=== PATIENT | female | born 1945 | race Caucasian/White ===

== ENCOUNTER → 2017-03-10 | Outpatient (CLI) | payer MEDICARE ==
--- NOTE | 2017-03-11 13:49 | MM ---
Reason for exam: screening (asymptomatic). Last mammogram was performed 1 year and 4 months ago. History: Patient is postmenopausal and history of colon cancer. Family history of breast cancer in sister at age 63 and breast cancer in aunt at age 80. Benign left mammotome panel of the left breast, April 12, 2013. Reductions of both breasts, 2007. Taking estrogen for 5 years 8 months. Taking progesterone for 5 years 8 months. Physical Findings: A clinical breast exam by your physician is recommended on an annual basis and results should be correlated with mammographic findings. MG 3D Screening Mammo W/Cad Bilateral CC and MLO view(s) were taken. Prior study comparison: November 05, 2015, bilateral MG 3d screening mammo w/cad. August 13, 2010, bilateral diagnostic digital mammog. Finding: There are typically benign calcifications in both breasts. Previous mammotome biopsy in the left breast. No significant changes in finding since November 05, 2015 and August 13, 2010. ASSESSMENT: Benign, BI-RAD 2 RECOMMENDATION: Routine screening mammogram of both breasts in 1 year.
== END | disposition home or self-care (01) ==
LOC: RADMAMWWP 14:59
PROVIDERS: ATTEND Family Medicine
DX: Z12.31 Encounter for screening mammogram for malignant neoplasm of breast (principal)
CPT/HCPCS: 77063; G0202

== ENCOUNTER → 2017-03-10 | Outpatient (CLI) | payer MEDICARE ==
--- NOTE | 2017-03-11 09:32 | XR ---
Bilateral knees HISTORY: Osteoarthritis bilateral knees M17.0, right knee pain 3 views of each knee submitted on a total of 5 images. No comparisons There is minimal marginal spurring medial compartments, slight joint space loss. Alignment and bone m ineralization are maintained. No evident joint effusion. Spurring also noted patellofemoral joints. V ascular calcifications noted incidentally. IMPRESSION: Findings compatible with osteoarthritis.
--- NOTE | 2017-03-11 09:34 | XR ---
Bilateral shoulders HISTORY: Osteoarthritis bilateral shoulders, left shoulder pain 3 views of each shoulder are submitted on a total of 6 images Hypertrophic changes present at the acromioclavicular joints. Alignment and bone mineralization are m aintained. Lung apices as visualized are normal. IMPRESSION: Acromioclavicular joint arthropathy.
== END | disposition home or self-care (01) ==
LOC: RADXRMAIN 15:27
PROVIDERS: ATTEND Family Medicine
DX: M17.0 Bilateral primary osteoarthritis of knee (principal); M19.011 Primary osteoarthritis, right shoulder; M19.012 Primary osteoarthritis, left shoulder
CPT/HCPCS: 77063

== ENCOUNTER → 2018-03-17 | Outpatient (CLI) | payer MEDICARE ==
[2018-03-17 11:43] LABS: ALT 29 U/L (9-52); AST 24 U/L (14-36); Albumin 4.3 g/dL (3.5-5.0); Alkaline Phosphatase 88 U/L (38-126); Anion Gap 10 mmol/L; Blood Urea Nitrogen 13 mg/dL (7-17); Calcium 9.8 mg/dL (8.4-10.2); Carbon Dioxide 28 mmol/L (22-30); Chloride 104 mmol/L (98-107); Cholesterol 209 mg/dL (<200); Glucose 92 mg/dL (74-99); HDL Cholesterol 102 mg/dL (40-60); LDL Cholesterol,Calculated 88 mg/dL (0-99); Potassium 4.3 mmol/L (3.5-5.1); Sodium 142 mmol/L (137-145); Total Bilirubin 0.5 mg/dL (0.2-1.3); Total Protein 7.7 g/dL (6.3-8.2); Triglycerides 93 mg/dL (<150)
== END ==
LOC: LABWHC1 10:05
PROVIDERS: ATTEND Internal Medicine Interventional Cardiology
DX: I73.9 Peripheral vascular disease, unspecified (principal)
CPT/HCPCS: 36415; 80053; 80061

== ENCOUNTER → 2018-07-26 | Outpatient (CLI) | payer MEDICARE ==
--- NOTE | 2018-07-27 11:52 | MM ---
Reason for exam: screening (asymptomatic). Last mammogram was performed 1 year and 4 months ago. History: Patient is postmenopausal and history of colon cancer. Family history of breast cancer in sister at age 63 and breast cancer in aunt at age 80. Benign left mammotome panel of the left breast, April 12, 2013. Reductions of both breasts, 2007. Took estrogen for 5 years 8 months. Took progesterone for 5 years 8 months. Physical Findings: A clinical breast exam by your physician is recommended on an annual basis and results should be correlated with mammographic findings. MG 3D Screening Mammo W/Cad Bilateral CC and MLO view(s) were taken. Prior study comparison: March 10, 2017, bilateral MG 3d screening mammo w/cad. November 05, 2015, bilateral MG 3d screening mammo w/cad. There are scattered fibroglandular densities. Finding: There are indeterminate calcifications in the 9 o'clock position of the left breast 8cm from the nipple. New finding since March 10, 2017 and November 05, 2015. ASSESSMENT: Incomplete: need additional imaging evaluation, BI-RAD 0 RECOMMENDATION: Special view mammogram of the left breast. [facility] will attempt to contact patient to return for supplemental views.
== END | disposition home or self-care (01) ==
LOC: RADMAMWWP 14:18
PROVIDERS: ATTEND Family Medicine
DX: Z12.31 Encounter for screening mammogram for malignant neoplasm of breast (principal)
CPT/HCPCS: 77063; 77067

== ENCOUNTER → 2018-07-26 | Outpatient (CLI) | payer MEDICARE ==
--- NOTE | 2018-07-27 17:13 | MR ---
EXAMINATION TYPE: MR lumbar spine wo con DATE OF EXAM: 07/26/2018 COMPARISON: None HISTORY: Spondylosis with myelopathy, back pain CONTRAST: 0 mL intravenous Gadavist. TECHNIQUE: Multiplanar, multisequence images of the lumbar spine were acquired. FINDINGS: L5-S1: No significant disc bulge or disc herniation. No spinal canal stenosis. No foraminal stenosi s. Left facet hypertrophy and ligamentum flavum laxity is present with lateral canal impression. Mil d neural foraminal stenosis is present. L4-L5: There is a grade 1 spondylolisthesis. Disc uncovering has moderate right paracentral disc randi iation. Foramen are patent. Moderate bilateral foraminal narrowing is present. L3-L4: Facet hypertrophy is present with ligamentum flavum laxity. This is causing lateral canal sten osis. Some disc bulging is moderate anterior thecal sac compression. No AP spinal canal stenosis is p resent. There is moderate bilateral foraminal narrowing slightly greater on the right. L2-L3: Retrolisthesis is present. This is a grade 1. No AP spinal canal stenosis is present. Facet hy pertrophy is present with posterior lateral thecal sac impression, greater on the right. Foramen are patent. Loss of disc height is level. L1-L2: Disc space narrowing is present. No AP spinal canal stenosis present. Facet hypertrophy is pre sent. T12-L1: No significant disc bulge or disc herniation. No spinal canal stenosis. No foraminal stenos is. . IMPRESSION: 1. Scoliosis and degenerative disc changes. 2. Grade 1 spondylolisthesis of L4 anterior on L5. Minimal retrolisthesis of L2 on L3 is present. 3. Degenerative disc changes with loss of disc height L1-L2 3 and L5-S1. Milder disc space narrowing is present L3-4 and L4-5. 4. Facet hypertrophy L3-4 contributing to lateral canal stenosis.
== END | disposition home or self-care (01) ==
LOC: RADMRIMAIN 14:54
PROVIDERS: ATTEND Family Medicine
DX: M48.061 Spinal stenosis, lumbar region without neurogenic claudication (principal); M51.17 Intervertebral disc disorders with radiculopathy, lumbosacral region; M43.16 Spondylolisthesis, lumbar region; M41.86 Other forms of scoliosis, lumbar region; M53.86 Other specified dorsopathies, lumbar region
CPT/HCPCS: 72148

== ENCOUNTER 2018-07-27 10:57 | Day surgery (SDC) | payer MEDICARE ==
[2018-07-20 14:37] VITALS: BMI 27.8
[~2018-07-27 10:57] MED LIST: SODIUM CHLORIDE 0.9% 1,000 ML in EMPTY BAG 1 BAG IV ONE
[2018-07-27 11:46] LABS: Basophils # (A) 0.1 k/uL (0-0.2); Basophils % (A) 1 %; Eosinophils # (A) 0.1 k/uL (0-0.7); Eosinophils % (A) 1 %; HCT 43.1 % (34.0-46.0); HGB 14.2 gm/dL (11.4-16.0); Lymphocytes # (A) 1.8 k/uL (1.0-4.8); Lymphocytes % (A) 16 %; MCH 33.9 pg (25.0-35.0); MCV 102.9 fL (80.0-100.0); Macrocytosis Slight; Mean Platelet Volume 7.3; Monocytes # (A) 0.6 k/uL (0-1.0); Monocytes % (A) 6 %; Neutrophils # (A) 8.6 k/uL (1.3-7.7); Neutrophils % (A) 76 %; Platelet Count 186 k/uL (150-450); RBC 4.19 m/uL (3.80-5.40); RDW 12.4 % (11.5-15.5); WBC 11.3 k/uL (3.8-10.6)
[2018-07-27 11:54] LABS: Anion Gap 10 mmol/L; Blood Urea Nitrogen 10 mg/dL (7-17); Calcium 9.9 mg/dL (8.4-10.2); Carbon Dioxide 24 mmol/L (22-30); Chloride 105 mmol/L (98-107); Glucose 94 mg/dL (74-99); Potassium 4.1 mmol/L (3.5-5.1); Sodium 139 mmol/L (137-145)
[2018-07-27] MEDS ORDERED: ALPRAZolam 0.25 MG TAB ONE (13:38)
[2018-07-27] MEDS ORDERED: MIDAZOLAM 2 MG/2 ML VIAL IV ONE (14:18)
[2018-07-27] MEDS ORDERED: SODIUM CHLORIDE 0.9% 1,000 ML IV SCH (14:30)
[2018-07-27] MEDS ORDERED: IOPAMIDOL-250 100ML BTL INTRAARTER ONE (14:54)
[2018-07-27] MEDS ORDERED: IOPAMIDOL-250 50ML BTL INTRAARTER ONE (14:55)
--- NOTE | 2018-07-27 15:29 | IR ---
EXAMINATION TYPE: IR angio abdominal w runoff DATE OF EXAM: 07/27/2018 COMPARISON: NONE HISTORY: Peripheral vascular occlusive disease. Fluoroscopy was provided to the referring clinician. See dictated report from cardiology.
[2018-07-27 19:45] VITALS: BP 123/72; PULSE 94; RESP 16; TEMP 99.1
--- NOTE | 2018-07-28 11:21 | AN ---
ANGIOGRAPHY REPORT DATE OF SERVICE: July 27, 2018 PERFORMING PHYSICIAN: Cortez Burgess MD, maintenance operator. PROCEDURE PERFORMED: 1. An abdominal aortogram. 2. Bilateral lower extremities runoff. INDICATION: This is a very pleasant 72-year-old female patient who sees Dr. Sanchez in the office as an outpatient who was experiencing bilateral lower extremities intermittent claudication and underwent an anterior duplex study and that revealed severe fem-pop disease bilaterally. Because of that and because of the severity of her symptoms, I recommended proceeding with an abdominal aortogram and bilateral lower extremities runoff. COMPLICATION: None. LEVEL OF SEDATION: Moderate with sedation length of 8 minutes. APPROACH: Right common femoral artery. PROCEDURE DESCRIPTION: After obtaining an informed consent, the patient was brought to the cardiac mill labor supervisor. The right common femoral artery was cannulated using micropuncture technique, the micropuncture wire passed easily and then I placed a 5-Gabonese sheath in the right common femoral artery. After that, I did an abdominal aortogram and bilateral lower extremities runoff using 5-Gabonese pigtail catheter which was initially placed at the level of the renal arteries then it was pulled into above the bifurcation of the aorta to right and left common iliac arteries. The procedure was completed without any complication. SELECTIVE PERIPHERAL ANGIOGRAM: 1. The aorta is angiographically normal, beside being calcified. 2. Common iliac arteries: The right and left common iliac arteries are angiographically normal. 3. External iliac arteries: Right and left external iliac arteries are angiographically normal. 4. Internal iliac arteries: The right and left internal iliac arteries are patent. 5. Common femoral arteries: The right and left common femoral arteries are normal. 6. Profunda: The right and left profunda are patent. 7. The SFA: The right SFA is chronically occluded on a short segment in the midportion in heavily calcified segment and the left SFA has a critical disease. 8. Below the knee: There are 3-vessel runoff below the knee bilaterally. CONCLUSION: 1. Severe bilateral femoropopliteal disease. 2. Occluded right SFA on short segment. 3. Severe disease involving the mid left SFA. POSTPROCEDURE MANAGEMENT: WARDROBE TECHNICIAN of bilateral SFA on 2 separate sessions. MMODL / IJN: [id number] /
== END 2018-07-27 21:23 | disposition home or self-care (01) ==
LOC: CATHCVL 10:57 → 3OBS 14:26 → CATHCVL 21:23
PROVIDERS: ATTEND Internal Medicine Interventional Cardiology
DX: I70.213 Atherosclerosis of native arteries of extremities with intermittent claudication, bilateral legs (principal); I70.0 Atherosclerosis of aorta; Z87.891 Personal history of nicotine dependence; Z85.038 Personal history of other malignant neoplasm of large intestine; Q82.8 Other specified congenital malformations of skin; H35.30 Unspecified macular degeneration; Z79.82 Long term (current) use of aspirin; Z79.899 Other long term (current) drug therapy
CPT/HCPCS: 36200; 75625; 75716; 80048; 85025; C1769 ×3; C1894; J2250; Q9966 ×2

== ENCOUNTER → 2018-08-05 | Outpatient (CLI) | payer MEDICARE ==
--- NOTE | 2018-08-06 08:52 | MM ---
Reason for exam: additional evaluation requested from abnormal screening. Last mammogram was performed less than 1 month ago. History: Patient is postmenopausal and history of colon cancer. Family history of breast cancer in sister at age 63 and breast cancer in aunt at age 80. Benign left mammotome panel of the left breast, April 12, 2013. Reductions of both breasts, 2008. Took estrogen for 5 years 8 months. Took progesterone for 5 years 8 months. Physical Findings: Nurse did not find any significant physical abnormalities on exam. MG 3D Work Up W/Cad LT CC and MLO view(s) were taken of the left breast. Prior study comparison: July 26, 2018, bilateral MG 3d screening mammo w/cad. March 10, 2017, bilateral MG 3d screening mammo w/cad. There are scattered fibroglandular densities. Finding: There are intermediate concern, suspicious coarse heterogeneous, grouped/clustered calcifications in the inner quadrant, middle position of the left breast. New finding since March 10, 2017. These results were verbally communicated with the patient and result sheet given to the patient on 08/05/18. ASSESSMENT: Suspicious, BI-RAD 4 RECOMMENDATION: Stereotactic core biopsy of the left breast. Called Dr. Martínez with mammographic findings and has scheduled an appointment for the patient for 09/02/18 at 11:[address] Mejia. Biopsy scheduled for 09/03/18 at 8:00. PRELIMINARY REPORT CALLED AND FAXED TO DR. MEJIA ON 08/06/18.
== END ==
LOC: RADMAMWWP 13:40
PROVIDERS: ATTEND Family Medicine
DX: R92.8 Other abnormal and inconclusive findings on diagnostic imaging of breast (principal)
CPT/HCPCS: 77065; G0279; 77061

== ENCOUNTER 2018-08-25 06:30 | Day surgery (SDC) | payer MEDICARE ==
[2018-08-19 08:51] VITALS: BMI 27.6
[2018-08-25] MEDS ORDERED: ALPRAZolam 0.25 MG TAB PO PRN ×2 (06:32→09:22)
[2018-08-25] MEDS ORDERED: SODIUM CHLORIDE 0.9% 1,000 ML in EMPTY BAG 1 BAG IV ONE (06:32)
[2018-08-25] MEDS ORDERED: ASPIRIN 325 MG TAB PO STA (06:32)
[2018-08-25 07:12] LABS: Basophils % (A) 1 %; Eosinophils # (A) 0.3 k/uL (0-0.7); Eosinophils % (A) 5 %; HCT 43.7 % (34.0-46.0); HGB 13.6 gm/dL (11.4-16.0); Lymphocytes # (A) 2.1 k/uL (1.0-4.8); Lymphocytes % (A) 29 %; MCH 32.5 pg (25.0-35.0); MCHC 31.1 g/dL (31.0-37.0); MCV 104.5 fL (80.0-100.0); Macrocytosis Slight; Mean Platelet Volume 6.7; Monocytes # (A) 0.4 k/uL (0-1.0); Monocytes % (A) 5 %; Neutrophils # (A) 4.2 k/uL (1.3-7.7); Neutrophils % (A) 58 %; Platelet Count 203 k/uL (150-450); RBC 4.18 m/uL (3.80-5.40); RDW 12.5 % (11.5-15.5); WBC 7.3 k/uL (3.8-10.6)
[2018-08-25 07:21] LABS: Anion Gap 7 mmol/L; Blood Urea Nitrogen 15 mg/dL (7-17); Calcium 9.7 mg/dL (8.4-10.2); Carbon Dioxide 25 mmol/L (22-30); Chloride 107 mmol/L (98-107); Glucose 95 mg/dL (74-99); Potassium 4.3 mmol/L (3.5-5.1); Sodium 139 mmol/L (137-145)
[2018-08-25] MEDS: fentaNYL (PF) 50 MCG/ML 2 ML AMP IVP ONE ×2 (08:13→08:53)
[2018-08-25] MEDS: MIDAZOLAM 2 MG/2 ML VIAL IVP ONE ×2 (08:13→08:29)
[2018-08-25] MEDS ORDERED: LIDOCAINE 1% (PF) 10MG/ML VIAL SQ ONE (08:17)
[2018-08-25] MEDS ORDERED: NITROGLYCERIN 1000MCG/10ML SYRINGE INTRAARTER ONE (09:02)
[2018-08-25] MEDS ORDERED: niCARdipine Syringe (1,000 mcg/10 mL) INTRAARTER ONE (09:02)
[2018-08-25] MEDS ORDERED: IOPAMIDOL-250 100ML BTL INTRAARTER ONE (09:06)
[2018-08-25] MEDS ORDERED: DICYCLOMINE 10 MG CAP PO PRN (09:22)
[2018-08-25] MEDS ORDERED: CLOPIDOGREL 75 MG TAB PO ONE (09:24)
[2018-08-25] MEDS ORDERED: SODIUM CHLORIDE 0.9% 1,000 ML IV SCH (09:30)
--- NOTE | 2018-08-25 09:44 | LTR ---
Date of Service: 08/25/2018 RE: Keerthi Quinones Dear Dr. Elizondo: Ms. Keerthi Quinones was referred for further evaluation of peripheral arterial disease by Dr. Sanchez. She was found to have occluded bilateral femoral arteries. She was brought today and underwent successful angioplasty of the left femoral artery with good angiographic results. Thank you for allowing us to participate in her care and please do not hesitate to call if you have any question or concern. Sincerely, Cortez Burgess MD MMJEAN / EDITAN: [id number] /
--- NOTE | 2018-08-25 10:02 | AN ---
ANGIOGRAPHY REPORT PERCUTANEOUS PERIPHERAL INTERVENTION: DATE OF SERVICE: August 25, 2018 PERFORMING PHYSICIAN: Cortez Burgess MD, accident investigator. PROCEDURE PERFORMED: 1. Selective left [id number] angiogram. 2. Selective left SFA angiogram. 3. Selective right common femoral artery angiogram. 4. Atherectomy of the left SFA using the CSI atherectomy device "orbital atherectomy". 5. Successful balloon angioplasty of the left SFA using 4.0 x 80 mm drug-coated balloon with an excellent angiographic result and reduction of stenosis from 100% to 0%. INDICATION: This is a pleasant 72-year-old female patient who was experiencing bilateral lower extremities intermittent claudication and she did undergo a peripheral angiogram and that showed occluded left SFA bilaterally. She was brought today to undergo a AIRCRAFT TOOL MAKER of the left SFA. APPROACH: Right common femoral artery. COMPLICATION: None. LEVEL OF SEDATION: Moderate with sedation for 58 minutes. PROCEDURE DESCRIPTION: After obtaining an informed consent, the patient was brought to cardiac slab miller operator. The right common femoral artery was cannulated using micropuncture technique and a micropuncture wire passed easily then I placed a 6-Mongolian sheath in the right common femoral artery. After that I did start anticoagulation using heparin and the patient was given a weight-based heparin of 7000 units. After that I did select the left SFA using 0.035 [place] Advantage with the backup support of 5-Mongolian rim catheter. Subsequently I did exchange my 11 cm 6-Mongolian sheath into 55 cm 6-Mongolian Raabe sheath using the 0.035 advantage wire. The tip of the sheath was positioned in the left common femoral artery. After that I did cross the occlusion in the left SFA using 0.[address] wire with a backup support of 0.014 CXI catheter. After that, I did exchange my 0.014 wire into 0.014 ViperWire preparing for atherectomy using the CSI catheter. After that, I did 4 runs of rotational atherectomy using the orbital atherectomy device from I and then I did balloon angioplasty initially using 4.0 x 80 mm Chocolate balloon and subsequently 4.0 x 80 mm drug-coated balloon. The final result showed reduction of stenosis from 100% to 0% and the procedure was completed without any complication. After that I did exchange my long sheath into short sheath using 0.035 wire. The procedure was completed without any complication. POSTPROCEDURE MANAGEMENT: 1. Dual antiplatelet therapy. 2. Risk factor modifications. 3. Follow up with the patient. MMODL / IJN: [id number] /
--- NOTE | 2018-08-25 10:11 | IR ---
EXAMINATION TYPE: IR guard captain femoral popliteal DATE OF EXAM: 08/25/2018 COMPARISON: NONE HISTORY: Peripheral vascular occlusive disease. Fluoroscopy was provided to the referring clinician. See dictated report from cardiology.
[2018-08-25] MEDS ORDERED: ACETAMINOPHEN TAB 325 MG TAB PO PRN (15:48)
[2018-08-25] MEDS ORDERED: traZODone HCL 50 MG TAB PO SCH (21:00)
[2018-08-26 02:48] VITALS: TEMP 97.3
[2018-08-26 06:05] LABS: Basophils % (A) 1 %; Eosinophils # (A) 0.4 k/uL (0-0.7); Eosinophils % (A) 7 %; HCT 37.2 % (34.0-46.0); HGB 11.8 gm/dL (11.4-16.0); Lymphocytes # (A) 1.7 k/uL (1.0-4.8); Lymphocytes % (A) 31 %; MCH 33.4 pg (25.0-35.0); MCHC 31.9 g/dL (31.0-37.0); MCV 104.7 fL (80.0-100.0); Macrocytosis Slight; Mean Platelet Volume 6.8; Monocytes # (A) 0.3 k/uL (0-1.0); Monocytes % (A) 5 %; Neutrophils # (A) 2.9 k/uL (1.3-7.7); Neutrophils % (A) 53 %; Platelet Count 151 k/uL (150-450); RBC 3.55 m/uL (3.80-5.40); RDW 12.4 % (11.5-15.5); WBC 5.4 k/uL (3.8-10.6)
[2018-08-26 06:22] LABS: Anion Gap 4 mmol/L; Blood Urea Nitrogen 14 mg/dL (7-17); Calcium 8.8 mg/dL (8.4-10.2); Carbon Dioxide 25 mmol/L (22-30); Chloride 111 mmol/L (98-107); Glucose 88 mg/dL (74-99); Potassium 4.2 mmol/L (3.5-5.1); Sodium 140 mmol/L (137-145)
[2018-08-26 07:17] VITALS: RESP 16
[2018-08-26] MEDS ORDERED: VENLAFAXINE HCL ER 75 MG CAP PO SCH (09:00)
[2018-08-26] MEDS ORDERED: CALCIUM CARB-VIT D 500MG-200UN 1 EACH TAB PO SCH (09:00)
[2018-08-26] MEDS ORDERED: ATORVASTATIN 40 MG TAB PO SCH (09:00)
[2018-08-26] MEDS ORDERED: VIT A,C & E-LUTEIN-MINERALS 1 EACH TAB PO SCH (09:00)
[2018-08-26] MEDS ORDERED: CLOPIDOGREL 75 MG TAB PO SCH (09:00)
[2018-08-26] MEDS ORDERED: NON-FORMULARY DRUG (Fish Oil/Dha/Epa [Fish Oil 1,200 Mg Fish Oil] 1,200 MG) PO SCH (09:00)
[2018-08-26] MEDS ORDERED: ASPIRIN 81 MG PO SCH (09:00)
[2018-08-26 09:13] VITALS: BP 111/69; PULSE 92
--- NOTE | 2018-08-26 09:18 | P.DS ---
Providers Date of admission: August 252017 Attending physician: Cortez Burgess Primary care physician: [facility] Course: This is a very pleasant 72-year-old female patient who sees Dr. Sanchez in the office as an outpatient was diagnosed recently with severe peripheral arterial disease and occluded bilateral superficial femoral arteries. She did undergo a peripheral angiogram recently which confirmed the occlusion of bilateral SFA. Beside that she was asymptomatic and experiencing symptoms of intermittent claudication bilaterally which was severe enough and interfering with her daily activities. She was admitted to the hospital yesterday and underwent successful recanalizing left superficial femoral artery with a good angiographic results and reduction of stenosis from 100% to 0%. I did an atherectomy and balloon angioplasty of the left SFA using a drug-coated balloon. The procedure was performed from the right groin which is soft and nontender and without any bruises. The patient is going to be discharged home later on today on dual antiplatelet therapy as well as a statin. She will be scheduled to undergo a EMERGENCY RESPONSE COORDINATOR of the right SFA in the next few weeks. Plan - Discharge Summary Discharge Rx Participant: Yes New Discharge Prescriptions: New Clopidogrel [Plavix] 75 mg PO DAILY #90 tab Atorvastatin Calcium [Lipitor] 40 mg PO DAILY #90 tablet Continue Calcium Carbonate [Calcium] 600 mg PO DAILY traZODone HCL [Desyrel] 150 mg PO HS Venlafaxine HCl [Effexor XR] 75 mg PO DAILY Multivitamins, Thera [Multivitamin (formulary)] 1 tab PO DAILY Fish Oil/Dha/Epa [Fish Oil 1,200 mg Fish Oil] 1,200 mg PO DAILY ALPRAZolam [Xanax] 0.25 mg PO BID PRN PRN Reason: Anxiety Vit C/E/Zn/Coppr/Lutein/Zeaxan [Preservision Areds 2 Softgel] 1 cap PO DAILY Dicyclomine [Bentyl] 10 mg PO TID PRN PRN Reason: Crohns Aspirin [Adult Low Dose Aspirin EC] 81 mg PO DAILY Discharge Medication List ALPRAZolam [Xanax] 0.25 mg PO BID PRN 07/09/16 [History] Calcium Carbonate [Calcium] 600 mg PO DAILY 07/09/16 [History] Fish Oil/Dha/Epa [Fish Oil 1,200 mg Fish Oil] 1,200 mg PO DAILY 07/09/16 [ History] Multivitamins, Thera [Multivitamin (formulary)] 1 tab PO DAILY 07/09/16 [History ] Venlafaxine HCl [Effexor XR] 75 mg PO DAILY 07/09/16 [History] Vit C/E/Zn/Coppr/Lutein/Zeaxan [Preservision Areds 2 Softgel] 1 cap PO DAILY 05/17 [History] traZODone HCL [Desyrel] 150 mg PO HS 07/09/16 [History] Aspirin [Adult Low Dose Aspirin EC] 81 mg PO DAILY 07/27/18 [History] Dicyclomine [Bentyl] 10 mg PO TID PRN 07/27/18 [History] Atorvastatin Calcium [Lipitor] 40 mg PO DAILY #90 tablet 08/26/18 [Rx] Clopidogrel [Plavix] 75 mg PO DAILY #90 tab 08/26/18 [Rx] Follow up Appointment(s)/Referral(s): Cortez Burgess MD [STAFF PHYSICIAN] - 08/31/18 10:15 am Patient Instructions/Handouts: Heart Healthy Diet (DC), Peripheral Vascular Angioplasty (DC)
[2018-08-26] MEDS ORDERED: MULTIVITAMINS, THERA 1 EACH TAB PO SCH (12:00)
== END 2018-08-26 10:09 | disposition home or self-care (01) ==
LOC: CATHCVL 06:30 → 3SCARD 10:17 → CATHCVL 08-26 10:09
PROVIDERS: ATTEND Internal Medicine Interventional Cardiology
DX: I70.213 Atherosclerosis of native arteries of extremities with intermittent claudication, bilateral legs (principal); M48.00 Spinal stenosis, site unspecified; Q82.8 Other specified congenital malformations of skin; R00.2 Palpitations; Z79.82 Long term (current) use of aspirin; Z79.899 Other long term (current) drug therapy; Z72.0 Tobacco use; Z85.038 Personal history of other malignant neoplasm of large intestine
CPT/HCPCS: 37225; 80048; 85025

== ENCOUNTER → 2018-09-02 | Outpatient (CLI) | payer MEDICARE ==
[2018-09-02 11:27] VITALS: BP 129/79; PULSE 77; RESP 16; TEMP 97.9; BMI 28.5
--- NOTE | 2018-09-02 12:06 | P.GSHP ---
History of Present Illness H&P Date: 09/02/18 Chief Complaint: abnormal mammogram The patient is a 72-year-old white female who presents with a mammographic abnormality noted in her left breast. Additional views were obtained which remained detailed in intermediate concern suspicious coarse heterogeneous groups clustered calcifications in the inner quadrant middle position of the left breast. This is a new finding since March 2017 and she was recommended to undergo a stereotactic core biopsy. The patient does not feel anything of concern in her breast. She has no nipple discharge or changes of concern. She has no history of any trauma or infection in the breast. The patient did have bilateral breast reduction approximately 7 years ago. Family History: 1. patient: colon cancer 2. sister: breast cancer, 60's 3. maternal aunt: breast cancer Hormonal History: menarche: 18 : 3, 3 children, breast fed: no menopause: 52 BCP: 9 years hormones: 7 years, not know what she used Past Surgical History: 1. colon resection 2. breast reduction 3. tummy tuck 4. appy 5. tonsils Past Medical History: 1. 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 ulcerative colitis, follows with DR. Mora Social History: smoke: none alcohol: 1/week drugs: none - Constitutional Constitutional: Denies chills, Denies fever - EENT Comment: PXE affects eyes, vision affected Ears: deny: decreased hearing, tinnitus Ears, nose, mouth and throat: Denies headache, Denies sore throat - Breasts Breasts: bilateral: as per HPI - Cardiovascular Cardiovascular: Reports shortness of breath, Denies chest pain - Respiratory Respiratory: Denies cough, Denies 7 - Gastrointestinal Comment: colon resection for cancer/diahrea ulcerative colitis - Genitourinary (Female) Genitourinary: Denies dysuria, Denies hematuria - Menstruation Menstruation: Reports postmenopausal - Musculoskeletal Comment: arthritis - Integumentary Integumentary: Denies pruritus, Denies rash - Neurological Neurological: Denies numbness, Denies weakness - Psychiatric Psychiatric: Reports anxiety, Reports depression - Endocrine Endocrine: Reports weight change, Denies fatigue - Hematologic/Lymphatic Comment: plavix for left leg for balloon angioplasty Peripheral vascular disease of the lower extremities - Allergic/Immunologic Allergic/Immunologic: Reports seasonal allergies Past Medical History Past Medical History: Cancer, Eye Disorder, Osteoarthritis (OA), Vascular Disorder Additional Past Medical History / Comment(s): chron's, diverticulitis, colon cancer with resection/chemo 23 yrs ago, osteoporosis, PXE bilateral eyes-tx with lasik surgery, limited vision bilateral eyes, vertigo once in the past, spinal stenosis History of Any Multi-Drug Resistant Organisms: None Reported Past Surgical History: Bowel Resection, Tonsillectomy Additional Past Surgical History / Comment(s): breast reduction, tummy tuck, lasik surgery for PXE bilateral eyes, bowel resection d/t cancer 23 yrs ago, many colonoscopies. Past Anesthesia/Blood Transfusion Reactions: Motion Sickness Past Psychological History: Anxiety, Depression Additional Psychological History / Comment(s): Pt resides with her spouse. She is independent. Smoking Status: Former smoker Past Alcohol Use History: Occasional Additional Past Alcohol Use History / Comment(s): Pt states she started smoking as a young adult and quit 40 some yrs ago. Past Drug Use History: None Reported - Past Family History Father Family Medical History: No Reported History Additional Family Medical History / Comment(s): Father in his mid 70's Mother Family Medical History: CVA/TIA, Myocardial Infarction ([place]) Additional Family Medical History / Comment(s): Mother at age 75 yrs. Sister(s) Family Medical History: CVA/TIA, Deep Vein Thrombosis (DVT) Additional Family Medical History / Comment(s): SECOND SISTER WITH BREAST CANCER Medications and Allergies Home Medications Medication Instructions Recorded Confirmed Type ALPRAZolam [Xanax] 0.25 mg PO BID PRN 07/09/16 09/02/18 History Calcium Carbonate [Calcium] 600 mg PO DAILY 07/09/16 09/02/18 History Fish Oil/Dha/Epa [Fish Oil 1,200 1,200 mg PO DAILY 07/09/16 09/02/18 History mg Fish Oil] Multivitamins, Thera [Multivitamin 1 tab PO DAILY 07/09/16 09/02/18 History (formulary)] Venlafaxine HCl [Effexor XR] 75 mg PO DAILY 07/09/16 09/02/18 History Vit C/E/Zn/Coppr/Lutein/Zeaxan 1 cap PO DAILY 07/09/16 09/02/18 History [Preservision Areds 2 Softgel] traZODone HCL [Desyrel] 150 mg PO HS 07/09/16 09/02/18 History Aspirin [Adult Low Dose Aspirin EC] 81 mg PO DAILY 07/27/18 09/02/18 History Dicyclomine [Bentyl] 10 mg PO TID PRN 07/27/18 09/02/18 History Atorvastatin Calcium [Lipitor] 40 mg PO DAILY #90 tablet 08/26/18 09/02/18 Rx Clopidogrel [Plavix] 75 mg PO DAILY #90 tab 08/26/18 09/02/18 Rx Allergies Allergy/AdvReac Type Severity Reaction Status Date / Time latex Allergy Mild reddened Verified 09/02/18 11:15 skin Surgical - Exam Vital Signs Temp Pulse Resp BP Pulse Ox 97.9 F 77 16 129/79 96 09/02/18 11:15 09/02/18 11:15 09/02/18 11:15 09/02/18 11:15 09/02/18 11:15 BMI 28.6 - General well developed, well nourished, no distress - Eyes normal ocular movement, no icteric - ENT no hearing loss, no congestion - Neck no masses, trachea midline - Respiratory normal respiratory effort, clear to auscultation - Cardiovascular Rhythm: regular Heart Sounds: normal: S1, S2 - Abdomen Abdomen: soft, non tender, no guarding, no rigid, no rebound - Integumentary no rash, no abnormal pigmentation - Neurologic no disoriented, no combative - Musculoskeletal normal gait - Psychiatric oriented to time, oriented to person, oriented to place, speech is normal, memory intact breast exam: Right breast: Multi-positional exam no dominant masses or nodules of concern, patient has scars related to prior breast reduction Right axilla: No adenopathy of concern Left breast: Multi-positional exam no dominant masses or nodules of concern, patient has scars related to prior breast reduction Left axilla: No adenopathy of concern Results mammogram reports reviewed Assessment and Plan Assessment: Impression: 1. Mammographic abnormality left breast 2. Peripheral vascular disease 3. Prior history of colon cancer 4. PXE 5. anxiety/depression Plan: 1. Stereotactic core biopsy left breast 2. Medical management of medical conditions Risk and benefits of procedure discussed with the patient. The patient wishes to proceed. She is not taking any anticoagulants or blood thinners at this time and has not taken any for at least a week. CC: Dr. Odell/Morris Chapel
== END ==
LOC: WWCWWP 11:02
PROVIDERS: ATTEND Surgery
DX: Z53.9 Procedure and treatment not carried out, unspecified reason (principal)

== ENCOUNTER → 2018-09-03 | Day surgery (SDC) | payer MEDICARE ==
[2018-09-03 07:25] VITALS: RESP 16; BMI 28.7
--- NOTE | 2018-09-03 09:00 | P.OP ---
Date of Procedure: 09/03/18 Preoperative Diagnosis: Suspicious heterogeneous group/clustered calcifications in the inner quadrant middle position of the left breast Postoperative Diagnosis: Same Procedure(s) Performed: Left breast stereotactic core biopsy Anesthesia: local Surgeon: Sandra López Estimated Blood Loss (ml): 0 Pathology: other (breast tissue) Condition: stable Disposition: same day Indications for Procedure: The patient is a 72-year-old white female who on routine screening mammogram performed [id number] was noted to have an area of calcification of concern in the left breast. Additional views of the left breast were performed confirming suspicious coarse heterogeneous, group/clustered calcifications in the inner quadrant, middle position of the left breast. This was a new finding since March 2017. It was recommended the patient undergo a stereotactic core biopsy of the left breast. On physical examination the patient was not noted to have any dominant masses or nodules of concern in either breast on multi-positional exam. She did have bilateral scar tissue consistent with prior bilateral reduction mammoplasty. Operative Findings: Calcifications in specimen radiograph Description of Procedure: The patient was taken to the stereotactic core biopsy room. Risks and benefits of the procedure were discussed with the patient. These include but are not limited to bleeding and infection reaction to the anesthetic possible inability to sample the specimen. Options such as open surgical resection or watchful waiting were discussed but not recommended. The patient agreed to stereotactic core biopsy. She was positioned on the lorad table. The area of concern was in the left breast in the inner quadrant middle position. The approach to target these was CC from below. The lesion was clearly identified on the bench worker film. Following this a stereo pair was performed. The lesion was targeted. The skin was prepped using Betadine. Approximately 10 mL of 1% lidocaine was used to anesthetize the area of concern. A 9-gauge vacuum assisted rotating needle was driven to the correct coordinates. Pre-fire films were obtained. The needle was noted to be in the correct location and post-fire films were then obtained. This was also noted to be in the correct location. Several core biopsies from the 4 through 7 o'clock position were obtained. The microcalcification noted in the specimen radiograph was minimal. Therefore, additional core biopsies were obtained. During the procedure the patient complained of some discomfort and an additional 5 mL of lidocaine 1% was injected. This controlled her discomfort. Radiograph of the specimen was obtained. This revealed the microcalcifications of concern had been removed. A secure marked top red hat linux engineer was placed. A stereo pair revealed that the marker was in the correct location. Additionally it appeared that all of the microcalcifications of concern had been removed. There were no immediate postoperative complications. The patient tolerated the procedure in stable condition. The specimen was sent to pathology. The patient will follow-up with Dr. Bean in 1 week.
[2018-09-03 09:41] VITALS: BP 129/74; PULSE 83; TEMP 97.8
--- NOTE | 2018-09-07 20:28 | MM ---
EXAMINATION TYPE: MG stereo VAD BX LT DATE OF EXAM: 09/03/2018 COMPARISON: NONE CLINICAL HISTORY: Abnormal previous mammogram TECHNIQUE: Stereotactic guided core biopsy of left breast. FINDINGS: The procedure was performed by Dr. Vikas Kramer. Targeting was provided by radiology. 12 core samples were obtained. Secure darlene was placed. Post procedure mammogram is presented. The core marker appears to be slightly displaced from the expected region of the calcifications. This may be due to the accordion effect and should be accounted for this area needs to be re- localized. Specimen mammogram: Calcifications are within the specimen mammogram. IMPRESSION: 1. Successful ultrasound-guided core biopsy left breast calcifications. 2. Clip placement with some migration following removal from compression. Recommendations: 1. Recommendations are pending pathology results. Pathology Results: Benign LEFT BREAST, STEREOTACTIC CORE BIOPSY: Fibrocystic changes including fibroadenomatoid hyperplasia with calcifications, fibrosis, and sclerosing adenosis. Recommendation Follow up mammogram of the left breast in 6 months. ASHLEY
== END ==
LOC: RADMAMWWP 07:04
PROVIDERS: ATTEND Surgery
DX: N62 Hypertrophy of breast (principal); D24.2 Benign neoplasm of left breast; R92.1 Mammographic calcification found on diagnostic imaging of breast; N60.22 Fibroadenosis of left breast; R92.8 Other abnormal and inconclusive findings on diagnostic imaging of breast; Z91.040 Latex allergy status
CPT/HCPCS: 88305; 19081; A4648; J2001

== ENCOUNTER 2018-09-08 06:26 | Day surgery (SDC) | payer MEDICARE ==
[2018-09-06 17:40] VITALS: BMI 27.5
[~2018-09-08 06:26] MED LIST changes: +ALPRAZolam 0.25 MG TAB PO PRN; +ASPIRIN 325 MG TAB PO STA
[2018-09-08 07:09] LABS: Basophils # (A) 0.1 k/uL (0-0.2); Basophils % (A) 1 %; Eosinophils # (A) 0.4 k/uL (0-0.7); Eosinophils % (A) 7 %; HCT 39.8 % (34.0-46.0); HGB 12.9 gm/dL (11.4-16.0); Lymphocytes # (A) 1.7 k/uL (1.0-4.8); Lymphocytes % (A) 31 %; MCH 33.6 pg (25.0-35.0); MCHC 32.4 g/dL (31.0-37.0); MCV 103.6 fL (80.0-100.0); Macrocytosis Slight; Mean Platelet Volume 6.7; Monocytes # (A) 0.3 k/uL (0-1.0); Monocytes % (A) 6 %; Neutrophils % (A) 54 %; Platelet Count 232 k/uL (150-450); RBC 3.84 m/uL (3.80-5.40); RDW 12.6 % (11.5-15.5); WBC 5.6 k/uL (3.8-10.6)
[2018-09-08 07:22] LABS: Anion Gap 6 mmol/L; Blood Urea Nitrogen 14 mg/dL (7-17); Calcium 9.1 mg/dL (8.4-10.2); Carbon Dioxide 24 mmol/L (22-30); Chloride 109 mmol/L (98-107); Glucose 94 mg/dL (74-99); Potassium 4.3 mmol/L (3.5-5.1); Sodium 139 mmol/L (137-145)
[2018-09-08] MEDS ORDERED: MIDAZOLAM 2 MG/2 ML VIAL IV ONE (07:47)
[2018-09-08] MEDS ORDERED: LIDOCAINE 1% INJ 10MG/ML (20 ML MDV) SQ ONE (07:47)
[2018-09-08] MEDS ORDERED: HEPARIN SODIUM 1,000 UN/ML (10ML VL) IV ONE (07:54)
[2018-09-08] MEDS: fentaNYL (PF) 50 MCG/ML 2 ML AMP IV ONE ×3 (07:54→08:34)
[2018-09-08] MEDS: MIDAZOLAM 2 MG/2 ML VIAL IV ONE ×2 (08:03→08:31)
[2018-09-08] MEDS ORDERED: CLOPIDOGREL 75 MG TAB PO ONE (08:46)
[2018-09-08] MEDS ORDERED: IOPAMIDOL-250 100ML BTL IV ONE (09:03)
[2018-09-08] MEDS ORDERED: fentaNYL (PF) 50 MCG/ML 2 ML AMP IV ONE (09:17)
[2018-09-08] MEDS ORDERED: ONDANSETRON 4 MG/2 ML VIAL IVP ONE (09:18)
[2018-09-08] MEDS ORDERED: ALPRAZolam 0.25 MG TAB PO PRN (09:19)
[2018-09-08] MEDS ORDERED: SODIUM CHLORIDE 0.9% 1,000 ML IV SCH (09:30)
[2018-09-08] MEDS ORDERED: fentaNYL (PF) 50 MCG/ML 5 ML AMP IVP SCH (10:00)
[2018-09-08] MEDS ORDERED: HYDROmorphone 1 MG/ML 1 ML SYRINGE IVP PRN ×2 (10:03)
--- NOTE | 2018-09-08 10:04 | LTR ---
September 08, 2018 Re: Keerthi Quinones Dear Dr. Elizondo: Ms. Keerthi Quinones underwent successful balloon angioplasty of the right femoral artery with good angiographic results and without any complication. Thank you for allowing us to participate in her care and please do not hesitate to call if you have any question or concern. Sincerely, MD YUN Paredes / ZENY: [id number] /
--- NOTE | 2018-09-08 10:19 | AN ---
ANGIOGRAPHY REPORT PERCUTANEOUS PERIPHERAL INTERVENTION: DATE OF SERVICE: September 08, 2018 PERFORMING PHYSICIAN: Cortez Burgess MD, mold mechanic. PROCEDURE PERFORMED: 1. Selective right [id number]-cfb-[id number] angiogram. 2. Selective right popliteal/SFA angiogram. 3. Selective left common femoral artery angiogram. 4. An atherectomy of the right superficial femoral artery using the TurboHawk device. 5. Successful stenting of the mid right SFA using 6.0 x 140 mm Zilver PTX the drug coated stent with excellent angiographic results. 6. Successful balloon angioplasty of the proximal right SFA using 4.0 x 60 mm drug- coated balloon which was drug coated balloon with good angiographic results as well. INDICATION: This is a pleasant 72-year-old female patient who sees Dr. Sanchez in the office as an outpatient and also sees Dr. Elizondo who was experiencing bilateral lower extremities intermittent claudication and underwent a peripheral angiogram and that revealed occluded bilateral SFA. She underwent a balloon angioplasty of the left SFA and was brought today to undergo a balloon angioplasty of the right SFA. APPROACH: Left common femoral artery. COMPLICATION: None. LEVEL OF SEDATION: Moderate with sedation length of 83 minutes. PROCEDURE DESCRIPTION: After obtaining an informed consent, the patient was brought to the cardiac offset label rewinder. The left common femoral artery was cannulated using micropuncture technique, the micropuncture wire passed easily then I placed a 6-[place] sheath 11 cm in the left common femoral artery. At that point, anticoagulation was initiated using heparin and the patient was given 6000 units of heparin IV with ACT monitoring throughout the procedure. Subsequently I did selective right SFA using 0.035 [place] Advantage with the backup support of a 5-[place] Rim catheter. After that, I did exchange my 11 cm 6-[place] sheath into 55 cm 6-[place] Raabe sheath using the 0.035 [place] Advantage and the tip of the Raabe sheath was positioned at the level of the right common femoral artery. 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 I did prove that I was in the true lumen by injecting contrast through the CXI catheter. After that I did atherectomy of the right SFA using the TurboHawk device with extraction of significant amount of plaque. I did after that balloon angioplasty using 5 mm balloon with the following angiogram, which showed severe residual dissection and as well as and because of that, I decided to stent the right SFA. I did deploy in the mid right SFA Zilver PTX drug coated stent, which was 6.0 x 140 mm stent which was postdilated using 6 mm balloon with the final good angiographic results. For the proximal right SFA, I did balloon angioplasty using a drug coated balloon which was coated balloon which was 4.0 x 60 mm with the following angiogram showed good angiographic results as well. The final angiogram showed excellent result with 3-vessel runoff and brisk flow below the right knee. I was able to get about 2+ at least palpable pulse in the right dorsalis pedis. The procedure was completed without any complication. I did exchange my 70 cm 6-[place] sheath into 11 cm 6-[place] sheath using a 0.035 [place] advantage wire then I did selective left common femoral artery angiograms. The procedure was completed without any complication. POSTPROCEDURE MANAGEMENT: 1. Dual anti-platelet therapy. 2. Risk factor modifications. 3. Follow up with the patient. YUN / ZENY: [id number] /
[2018-09-08] MEDS: HYDROmorphone 1 MG/ML 1 ML SYRINGE IVP PRN ×4 (10:36→22:45)
[2018-09-08 11:43] LABS: Glucose,Whole Blood 125 mg/dL (75-99)
--- NOTE | 2018-09-08 13:24 | IR ---
EXAMINATION TYPE: IR field training agent femoral popliteal DATE OF EXAM: 09/08/2018 COMPARISON: NONE HISTORY: Peripheral vascular occlusive disease. Fluoroscopy was provided to the referring clinician. See dictated report from cardiology.
[2018-09-08 16:36] LABS: Glucose,Whole Blood 103 mg/dL (75-99)
[2018-09-08] MEDS: traZODone HCL 50 MG TAB PO SCH (19:55)
[2018-09-08 21:18] LABS: Glucose,Whole Blood 107 mg/dL (75-99)
[2018-09-09] MEDS: HYDROmorphone 1 MG/ML 1 ML SYRINGE IVP PRN ×2 (04:44→08:44)
[2018-09-09 05:46] LABS: Glucose,Whole Blood 99 mg/dL (75-99)
[2018-09-09 06:23] LABS: Basophils % (A) 1 %; Eosinophils # (A) 0.3 k/uL (0-0.7); Eosinophils % (A) 5 %; HCT 36.7 % (34.0-46.0); HGB 11.5 gm/dL (11.4-16.0); Lymphocytes # (A) 1.6 k/uL (1.0-4.8); Lymphocytes % (A) 24 %; MCH 33.2 pg (25.0-35.0); MCHC 31.3 g/dL (31.0-37.0); MCV 106.1 fL (80.0-100.0); Macrocytosis Slight; Mean Platelet Volume 6.8; Monocytes # (A) 0.4 k/uL (0-1.0); Monocytes % (A) 5 %; Neutrophils # (A) 4.2 k/uL (1.3-7.7); Neutrophils % (A) 63 %; Platelet Count 185 k/uL (150-450); RBC 3.46 m/uL (3.80-5.40); RDW 12.5 % (11.5-15.5); WBC 6.6 k/uL (3.8-10.6)
[2018-09-09 06:29] LABS: Anion Gap 2 mmol/L; Blood Urea Nitrogen 10 mg/dL (7-17); Calcium 8.9 mg/dL (8.4-10.2); Carbon Dioxide 30 mmol/L (22-30); Chloride 107 mmol/L (98-107); Glucose 103 mg/dL (74-99); Sodium 139 mmol/L (137-145)
[2018-09-09 06:30] LABS: Potassium 4.2 mmol/L (3.5-5.1)
--- NOTE | 2018-09-09 08:49 | DS ---
DISCHARGE SUMMARY ADMISSION DATE: 09/08/2018 DISCHARGE DATE: 09/09/2018 BRIEF HISTORY: This is a pleasant 72-year-old female patient who sees Dr. 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 She underwent AMUSEMENT EQUIPMENT OPERATOR of the left SFA and she was brought today to undergo a AMUSEMENT EQUIPMENT OPERATOR of the right SFA. On follow up with her today, she continues to have right lower extremities discomfort in the thigh area which we see sometimes in opening chronic total occlusion of the superficial femoral artery. She does have an excellent right dorsalis pedis pulse, which did not exist before. I am going to give the patient some pain medication and get her up and around for possible discharge later on today. The left groin which was the access site is soft and nontender and without any bruises. Please note that the patient is intolerant to statin. YUN / ZENY: [id number] /
[2018-09-09] MEDS ORDERED: ASPIRIN 81 MG PO SCH (09:00)
[2018-09-09] MEDS ORDERED: CALCIUM CARBONATE 500 MG CHEWABLE PO SCH (09:00)
[2018-09-09] MEDS ORDERED: CLOPIDOGREL 75 MG TAB PO SCH (09:00)
[2018-09-09] MEDS ORDERED: VIT A,C & E-LUTEIN-MINERALS 1 EACH TAB PO SCH (09:00)
[2018-09-09] MEDS ORDERED: NON-FORMULARY DRUG (Fish Oil/Dha/Epa [Fish Oil 1,200 Mg Fish Oil] 1,200 MG) PO SCH (09:00)
[2018-09-09] MEDS ORDERED: VENLAFAXINE HCL ER 75 MG CAP PO SCH (09:00)
[2018-09-09] MEDS ORDERED: ONDANSETRON 4 MG/2 ML VIAL IVP PRN (10:51)
[2018-09-09] MEDS ORDERED: HYDROmorphone 4 MG TABLET PO PRN ×2 (11:39→11:40)
[2018-09-09] MEDS ORDERED: HYDROmorphone 2 MG TAB PO PRN (11:41)
[2018-09-09 11:53] LABS: Glucose,Whole Blood 111 mg/dL (75-99)
[2018-09-09] MEDS ORDERED: MULTIVITAMINS, THERA 1 EACH TAB PO SCH (12:00)
[2018-09-09] MEDS: HYDROmorphone 2 MG TAB PO PRN ×3 (12:33→19:54)
[2018-09-09] MEDS: traZODone HCL 50 MG TAB PO SCH (19:53)
[2018-09-10 05:41] VITALS: RESP 18
[2018-09-10 09:05] VITALS: BP 127/64; PULSE 91; TEMP 98.7
--- NOTE | 2018-09-10 09:50 | DS ---
DISCHARGE SUMMARY ADMISSION DATE: 09/08/2018 DISCHARGE DATE: 09/10/2018 PERFORMING PHYSICIAN: Cortez Burgess MD. BRIEF HISTORY: This is a pleasant 72-year-old female patient who sees Dr. Sanchez in the office as an outpatient with a known history of peripheral arterial disease who was admitted to the hospital on September 08, 2018 and underwent successful crossing of chronic total occlusion of the right superficial femoral artery from the left groin approach. I came in to discharge the patient yesterday, but she was experiencing discomfort involving the right thigh. This is not uncommon after opening chronic total occlusion of the right SFA. She did have a great right dorsalis pedis pulse. I kept the patient overnight for just because of pain management. On follow up with her today, she stated that her pain is better, but she has been up and around. Having stated that, I am going to discharge the patient home on dual anti-platelet therapy and the patient is intolerant to statin. MMODL / IJN: [id number] /
== END 2018-09-10 10:04 | disposition home or self-care (01) ==
LOC: CATHCVL 06:26 → 3SCARD 09:06 → CATHCVL 09-10 10:04
PROVIDERS: ATTEND Internal Medicine Interventional Cardiology
DX: I70.213 Atherosclerosis of native arteries of extremities with intermittent claudication, bilateral legs (principal); I70.92 Chronic total occlusion of artery of the extremities; Q82.8 Other specified congenital malformations of skin; Z79.82 Long term (current) use of aspirin; Z79.899 Other long term (current) drug therapy; Z91.040 Latex allergy status; Z72.0 Tobacco use
CPT/HCPCS: 37227; 80048 ×2; 85025 ×2; C1894 ×2; C1725 ×3; C1769 ×5; C1714; C1760; C2623; C1874; J2250; J2405; J2001; J3010; J1644; J1170 ×2; Q9966

== ENCOUNTER → 2018-09-16 | Outpatient (CLI) | payer MEDICARE ==
--- NOTE | 2018-09-16 11:24 | P.PN ---
Subjective Progress Note Date: 09/16/18 Principal diagnosis: Status post stereotactic core biopsy of the left breast The patient is a 72-year-old white female who is status post her sterotactic core biopsy of the left breast performed on [id number]. Pathology revealed fibrocystic changes including fiber adenomatoid hyperplasia with calcifications , fibrosis, sclerosing adenosis. The patient has no complaints related to the procedure at this time. She has no complaints of hematoma or ecchymosis. Objective - Vital Signs Vital signs: Vital Signs Temp 97.4 F L 09/16/18 11:11 Pulse 99 09/16/18 11:11 Resp 18 09/16/18 11:11 BP 142/85 09/16/18 11:11 Pulse Ox 99 09/16/18 11:11 Intake & Output 09/15/18 09/16/18 09/16/18 18:59 06:59 18:59 Weight 77.111 kg - Constitutional General appearance: Present: average body habitus - EENT Eyes: Present: EOMI ENT: Present: hearing grossly normal - Neck Neck: Present: normal ROM - Respiratory Respiratory: right: wheezing - Cardiovascular Rhythm: regular Heart sounds: normal: S1, S2 - Gastrointestinal General gastrointestinal: Present: soft - Integumentary Integumentary: Present: normal turgor - Musculoskeletal Musculoskeletal: Present: gait normal - Psychiatric Psychiatric: Present: A&O x's 3, appropriate affect - Additional findings Additional findings: Left breast area of stereotactic biopsy No evidence of ecchymosis, hematoma or infection Assessment and Plan Assessment: Impression: 1. Right lung base wheezing 2. Benign left breast stereotactic core biopsy Plan: 1. Follow with primary care doctor regarding wheezing 2. Repeat left breast mammogram and physician exam in 6 months time Cc: Dr. Nile Benito
[2018-09-16 11:30] VITALS: BP 142/85; PULSE 99; RESP 18; TEMP 97.4; BMI 28.3
== END ==
LOC: WWCWWP 10:59
PROVIDERS: ATTEND Surgery
DX: Z53.9 Procedure and treatment not carried out, unspecified reason (principal)

== ENCOUNTER → 2019-02-21 | Outpatient (CLI) | payer MEDICARE ==
--- NOTE | 2019-02-22 08:31 | MM ---
Reason for exam: follow-up at short interval from prior study. Last mammogram was performed 7 months ago. History: Patient is postmenopausal and history of colon cancer. Family history of breast cancer in sister at age 63 and breast cancer in aunt at age 80. Benign MG stereo VAD BX LT of the left breast, September 03, 2018. Benign left mammotome panel of the left breast, April 12, 2013. Reductions of both breasts, 2007. Took estrogen for 5 years 8 months. Took progesterone for 5 years 8 months. Physical Findings: Nurse did not find any significant physical abnormalities on exam. MG 3D Diag Mammo W/Cad LT CC and MLO view(s) were taken of the left breast. Prior study comparison: July 26, 2018, bilateral MG 3d screening mammo w/cad. March 10, 2017, bilateral MG 3d screening mammo w/cad. The breast tissue is heterogeneously dense. This may lower the sensitivity of mammography. Previous mammotome biopsy in the left breast. No significant new findings when compared with previous films. These results were verbally communicated with the patient and result sheet given to the patient on 02/21/19. ASSESSMENT: Benign, BI-RAD 2 RECOMMENDATION: Return to routine screening mammogram schedule for both breasts. Back on schedule for July 2019.
== END | disposition home or self-care (01) ==
LOC: RADMAMWWP 09:36
PROVIDERS: ATTEND Surgery
DX: R92.8 Other abnormal and inconclusive findings on diagnostic imaging of breast (principal)
CPT/HCPCS: 77065; G0279; 77061

== ENCOUNTER → 2019-02-24 | Outpatient (CLI) | payer MEDICARE ==
[2019-02-24 12:30] VITALS: BP 126/67; PULSE 84; RESP 16; TEMP 96.5; BMI 28.3
--- NOTE | 2019-02-24 12:40 | P.PN ---
Subjective Progress Note Date: 02/24/19 Principal diagnosis: Core biopsy left breast September 2018 Romel is a 73-year-old white female who is status post her tactic core biopsy of the left breast on . Pathology revealed fibrocystic changes including fibroadenomatoid hyperplasia with calcifications, fibrosis, and sclerosing adenosis. The patient had a left breast mammogram performed on [id number]. This was felt to be benign and routine screening of both breast to be done in July 2019. The patient has no complaints related to her breast. She does not complain of pain, nodularity, or changes in her breast. No nipple discharge of concern. Family history: 1. Patient: Colon cancer 2. Sr.: Breast cancer 2. Maternal aunt: Breast cancer Hormonal history: Menarche: 18 Pregnancies: Today, 3 children, did not breast-feed Menopause: 17 control pills colon 9 years Hormones: 7 years, Past surgical history: 1. Colon resection 2. Breast reduction 2. Abdominoplasty 4. Appendectomy 5. 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 Ulcerative colitis Social history: Smoke: Negative Alcohol: Once a week Drugs: Negative Review of systems: HEENT: He asked the Effexor arthritis Lungs: Negative Heart: Shortness of breath GI: Ulcerative colitis Colon resection for cancer/diarrhea : Negative Musculoskeletal: Arthritis Psychiatric: Anxiety, depression Endocrine: Weight change Hematologic: Plavix for left leg which she had a balloon angioplasty done, peripheral vascular disease of the lower extremities ALLERGIES: Seasonal ALLERGIES Objective - Constitutional General appearance: Present: average body habitus - EENT Eyes: Present: EOMI ENT: Present: hearing grossly normal - Neck Neck: Present: normal ROM - Respiratory Respiratory: bilateral: CTA - Cardiovascular Rhythm: regular Heart sounds: normal: S1, S2 - Gastrointestinal General gastrointestinal: Present: soft - Integumentary Integumentary: Present: normal turgor - Musculoskeletal Musculoskeletal: Present: gait normal - Psychiatric Psychiatric: Present: A&O x's 3, appropriate affect, intact judgment & insight - Additional findings Additional findings: breast exam: right breast: Multi-positional exam no dominant masses or nodules of concern, well-healed scar from prior surgery, Right axilla: No adenopathy of concern Left breast: Multi-positional exam no dominant masses or nodules of concern, well-healed scar from prior reduction mammoplasty Skin lesion the left chest wall near breast which is been nonhealing as per the patient approximately 1 cm in size Left axilla: No adenopathy of concern Assessment and Plan Assessment: Impression: 1. fibrocystic breast changes 2. status post reduction mammoplasty 3. personal history of colon cancer 4. family history of breast cancer 5. ulcerative coloitis 6. PXE disease of the eyes 7. skin lesion Plan: 1. repeat mammogram in 6 months and follow up at that time 2. removal of skin lesion 3. medical management of medical problems CC: Dr. Odell
== END | disposition home or self-care (01) ==
LOC: WWCWWP 11:47
PROVIDERS: ATTEND Surgery
DX: Z53.9 Procedure and treatment not carried out, unspecified reason (principal)

== ENCOUNTER → 2019-08-23 | Outpatient (CLI) | payer MEDICARE ==
--- NOTE | 2019-08-23 18:58 | XR ---
Bilateral knees HISTORY: Bilateral knee pain 4 views of each knee are submitted. Total of 7 images. Correlation to prior knees dated 03/10/2017 No significant interval change. Marginal spurring is present in the medial compartments. Joint spaces and alignment are stable. No evident joint effusions. Bone mineralization is maintained. Spurring pr esent at the patellofemoral joints. Atherosclerotic vascular calcifications noted bilaterally. IMPRESSION: Osteoarthritis.
== END | disposition home or self-care (01) ==
LOC: RADXRMAIN 15:59
PROVIDERS: ATTEND Orthopaedic Surgery
DX: M17.0 Bilateral primary osteoarthritis of knee (principal)

== ENCOUNTER → 2019-09-01 | Outpatient (CLI) | payer MEDICARE ==
--- NOTE | 2019-09-02 08:26 | MM ---
Reason for exam: follow-up at short interval from prior study. Last mammogram was performed 6 months ago. History: Patient is postmenopausal and history of colon cancer. Family history of breast cancer in sister at age 63 and breast cancer in aunt at age 80. Benign MG stereo VAD BX LT of the left breast, September 03, 2018. Benign left mammotome panel of the left breast, April 12, 2013. Reductions of both breasts, 2008. Took estrogen for 5 years 8 months. Took progesterone for 5 years 8 months. Physical Findings: Nurse did not find any significant physical abnormalities on exam. MG Diagnostic Mammo w CAD SHERON Bilateral CC and MLO view(s) were taken. XCCL view(s) were taken of the left breast. Prior study comparison: February 21, 2019, left breast MG 3d diag mammo w/cad LT. August 05, 2018, left breast MG 3d work up w/cad LT. There are scattered fibroglandular densities. Previous mammotome biopsy in the left breast x 2. There is chronic nodularity bilaterally. No significant new findings when compared with previous films. These results were verbally communicated with the patient and result sheet given to the patient on 09/01/19. ASSESSMENT: Benign, BI-RAD 2 RECOMMENDATION: Routine screening mammogram of both breasts in 1 year.
== END | disposition home or self-care (01) ==
LOC: RADMAMWWP 09:37
PROVIDERS: ATTEND Surgery
DX: R92.8 Other abnormal and inconclusive findings on diagnostic imaging of breast (principal); Z80.3 Family history of malignant neoplasm of breast
CPT/HCPCS: 77066

== ENCOUNTER → 2019-09-09 | Outpatient (CLI) | payer MEDICARE ==
--- NOTE | 2019-09-09 14:24 | MR ---
EXAMINATION TYPE: MR knee LT wo con DATE OF EXAM: 09/09/2019 COMPARISON: X-rays dated 08/23/2019 HISTORY: Left knee pain TECHNIQUE: Multiplanar, multisequence imaging of the left knee is performed without IV contrast. FINDINGS: MEDIAL MENISCUS: There is an oblique tear of the posterior horn of the medial meniscus contiguous wit h the inferior articular surface and myxoid degeneration of the posterior horn. LATERAL MENISCUS: Complex tear with horizontal and radial component of the posterior horn of the late ral meniscus near the meniscal root on coronal PD fat-sat image 20 and sagittal image 13 and 14. CRUCIATE LIGAMENTS: The anterior and posterior cruciate ligaments are intact with mucoid degeneration of the ACL noted as there is thickening and increased signal throughout on sagittal PD fat-sat image 16. COLLATERAL LIGAMENTS: The medial collateral ligament and lateral collateral ligament complex are inta ct and unremarkable. There is a scant amount of fluid superficial to the medial collateral ligament t hat can be seen in medial collateral ligament bursitis. EXTENSOR MECHANISM: Visualized quadriceps and patellar tendons are intact. EFFUSION: No significant suprapatellar joint effusion. POPLITEAL CYST: No popliteal/lord cyst. TRICOMPARTMENT SPACES: Small tricompartmental osteophytes are seen. CARTILAGE: There is a partial thickness defect of the anterior weightbearing surface of the lateral f emoral condyle measuring 1.1 cm. Within the medial compartment there is generalized thinning without focal defect. In the patellofemoral compartment there is a near full-thickness defect of the patellar apex extending into the medial facet measuring overall 1.2 cm. Multifocal fissuring is also seen wit h early subchondral cystic formation and the patellar apex. BONE MARROW SIGNAL: No focal abnormal marrow signal is appreciated. IMPRESSION: 1. Oblique tear of posterior horn of the medial meniscus and myxoid degeneration. 2. Complex tear of the posterior horn of the lateral meniscus near the meniscal root. 3. Mild tricompartmental arthrosis and moderate chondrosis with partial-thickness defect of the anter ior weightbearing surface of the lateral femoral condyle measuring 1.1 cm and of the medial patellar facet and apex measuring 1.2 cm with early subchondral cystic formation of the patellar apex. 4. Scant amount of fluid overlying the medial collateral ligament that can be seen in medial collater al ligament bursitis. 5. Mucoid degeneration of the ACL.
== END | disposition home or self-care (01) ==
LOC: RADMRIMAIN 12:32
PROVIDERS: ATTEND Orthopaedic Surgery
DX: S83.242A Other tear of medial meniscus, current injury, left knee, initial encounter (principal); M17.12 Unilateral primary osteoarthritis, left knee

== ENCOUNTER → 2019-10-11 | Outpatient (CLI) | payer MEDICARE ==
[2019-10-11 16:35] LABS: Basophils % (A) 1 %; Eosinophils # (A) 0.2 k/uL (0-0.7); Eosinophils % (A) 3 %; HCT 42.5 % (34.0-46.0); HGB 13.6 gm/dL (11.4-16.0); Lymphocytes # (A) 1.6 k/uL (1.0-4.8); Lymphocytes % (A) 32 %; MCH 32.1 pg (25.0-35.0); MCV 100.5 fL (80.0-100.0); Mean Platelet Volume 7.7; Monocytes # (A) 0.3 k/uL (0-1.0); Monocytes % (A) 5 %; Neutrophils # (A) 2.9 k/uL (1.3-7.7); Neutrophils % (A) 58 %; Platelet Count 177 k/uL (150-450); RBC 4.23 m/uL (3.80-5.40); RDW 11.6 % (11.5-15.5)
[2019-10-11 16:55] LABS: Potassium 4.2 mmol/L (3.5-5.1)
--- NOTE | 2019-10-12 15:43 | HP ---
HISTORY AND PHYSICAL DATE OF SURGERY: 10/13/2019 Keerthi Quinones is a 73-year-old patient seen with progressive left knee pain. We discussed options for treatment. She elected to proceed with left knee arthroscopy. Consent was obtained. PAST MEDICAL HISTORY: Cardiovascular disease. PAST SURGICAL HISTORY: Noncontributory. DAILY MEDICATIONS: Effexor, ibuprofen. ALLERGIES: NONE. SOCIAL HISTORY: Denies tobacco use. PHYSICAL EVALUATION OF THE LEFT KNEE: Her range of motion is 0 to 130. There is a mild intraarticular effusion and tenderness along the medial and lateral joint lines. Positive medial Kay's. Positive lateral Kay's. Ligaments are stable. Hip rotation without pain. Distal neurovascular examination is intact. Left knee radiographs revealed moderate osteoarthritis. Left knee MRI revealed medial and lateral meniscal tears. IMPRESSION: 1. Internal derangement of the left knee with medial and lateral meniscal tears. 2. Left knee osteoarthritis. 3. Hypertension. PLAN: Left knee arthroscopy with partial meniscectomy and debridement. MMODL / IJN: [id number] /
== END | disposition home or self-care (01) ==
LOC: LABPAT 14:56
PROVIDERS: ATTEND Orthopaedic Surgery
DX: Z01.812 Encounter for preprocedural laboratory examination (principal); Z01.818 Encounter for other preprocedural examination; M23.92 Unspecified internal derangement of left knee
CPT/HCPCS: 36415; 80051; 85025; 93005

== ENCOUNTER 2019-10-13 10:39 | Day surgery (SDC) | payer MEDICARE ==
[2019-10-11 11:43] VITALS: BMI 27.1
[~2019-10-13 10:39] MED LIST changes: -ALPRAZolam 0.25 MG TAB PO PRN; -ASPIRIN 325 MG TAB PO STA; +DEXAMETHASONE SOD PHOSPHATE 10 MG/ML 1 ML VIAL IV ONE; +LACTATED RINGERS 1,000 ML IV SCH; +MIDAZOLAM 2 MG/2 ML VIAL IV PRN; +ONDANSETRON 4 MG/2 ML VIAL IVP ONE; -SODIUM CHLORIDE 0.9% 1,000 ML in EMPTY BAG 1 BAG IV ONE
[2019-10-13] MEDS ORDERED: LIDOCAINE 1% 20 ML VIAL (10MG/ML) FOR IV START INTRADERMA ONE (11:25)
[2019-10-13] MEDS ORDERED: MIDAZOLAM 2 MG/2 ML VIAL ONE (12:12)
[2019-10-13] MEDS ORDERED: PROPOFOL 10 MG/ML 20 ML VIAL IV ONE (12:12)
[2019-10-13] MEDS ORDERED: fentaNYL (PF) 50 MCG/ML 2 ML AMP ONE (12:12)
[2019-10-13] MEDS ORDERED: LIDOCAINE 1% INJ 10MG/ML (20 ML MDV) ONE (12:12)
[2019-10-13] MEDS ORDERED: BUPIVACAIN-EPI 0.25%-1:200,000 30 ML VIAL INTRAARTIC ONE ×2 (12:41→12:53)
--- NOTE | 2019-10-13 13:10 | P.OP ---
Date of Procedure: 10/13/19 Preoperative Diagnosis: Internal derangement left knee Postoperative Diagnosis: 1. Tear medial meniscus left knee 2. Grade 2 chondromalacia medial femoral condyle left knee 3. Grade 2 chondromalacia patella left knee 4. Reactive synovitis medial, lateral and suprapatellar compartments left knee Procedure(s) Performed: 1. Arthroscopic partial medial meniscectomy left knee 2. Arthroscopic chondroplasty medial femoral condyle left knee 3. Arthroscopic chondroplasty patella left knee 4. Arthroscopic partial synovectomy medial, lateral and suprapatellar compartments left knee Anesthesia: GETA Surgeon: Marcelo Simental Estimated Blood Loss (ml): 10 Pathology: none sent Condition: stable Disposition: PACU Indications for Procedure: 73-year-old patient seen with progressive left knee pain. After treatment options were discussed, she elected to proceed with arthroscopy. Operative Findings: See description of procedure Description of Procedure: Patient was taken to the operative suite. Patient underwent a general anesthetic by the department of anesthesia. Patient was given preoperative antibiotics. The left lower extremity was placed in a well-padded arthroscopic leg cagle. The left leg was prepped and draped in the normal sterile orthopedic fashion. A lateral parapatellar and suprapatellar incision was made. Trochars were inserted. Arthroscopy was initiated. Suprapatellar pouch revealed diffuse thick reactive synovitis. The patellofemoral joint appeared articulate congruently. There was grade 2 chondromalacia of the patella with some diffuse osteochondral tears present. The scope was guided into the medial gutter. No loose bodies or plica were identified. The scope was then guided into the medial compartment. A medial parapatellar incision was made. Trocar inserted followed by probe. There was a tear involving the posterior medial meniscus. There were grade 2 chondromalacia changes along the medial femoral condyle. There was thick reactive synovitis anteriorly. I performed a partial medial meniscectomy getting down to stable meniscal tissue. I performed a chondroplasty of the medial femoral condyle and a partial synovectomy decompressing thick reactive synovitis anteriorly. The residual meniscus was probed and found to be stable. There was good decompression of the synovitis. There was good stability about the residual osteochondral surface of the medial femoral condyle. Scope and probe were then guided into the intercondylar notch. Cruciates were identified, probed and found to be stable. The scope and probe were then guided into lateral compartment. There was some superficial tearing involving the posterior horn and midbody lateral meniscus. There were some diffuse grade 1 chondromalacia changes. There was thick reactive synovitis anteriorly. I introduced a motorized shaver and debrided that superficial tearing of lateral meniscus. I performed a partial synovectomy decompressing the reactive synovitis lateral compartment. The shaver was removed. There was good decompression of the synovitis. The scope was in guided back into the suprapatellar compartment. Used a motorized shaver into the suprapatellar compartment. I debrided some piecemeal fragments of meniscus I encountered. I performed a chondroplasty of the patella. I performed a partial synovectomy decompressing the thick reactive synovitis. Shaver was removed. I took one more look on the entire knee, no residual debris. Instruments were now removed from the joint. The joint was infiltrated with .25% Marcaine. Steri-Strips were applied to the portal sites. Sterile dressings were applied. The patient was placed into a MAY hose. No tourniquet was utilized. The patient was awakened, transferred to a bed and taken to recovery stable satisfactory condition.
[2019-10-13 13:12] VITALS: TEMP 96.8
[2019-10-13] MEDS: HYDROmorphone 0.5 MG/0.5 ML SYRINGE IVP PRN ×2 (13:15→13:45)
[2019-10-13] MEDS ORDERED: KETOROLAC 30 MG/ML 1 ML VIAL IVP ONE (13:32)
[2019-10-13 14:09] VITALS: RESP 18
[2019-10-13 14:30] VITALS: BP 123/73; PULSE 87
== END 2019-10-13 14:55 | disposition home or self-care (01) ==
LOC: OR 10:39
PROVIDERS: ATTEND Orthopaedic Surgery
DX: M23.222 Derangement of posterior horn of medial meniscus due to old tear or injury, left knee (principal); M23.252 Derangement of posterior horn of lateral meniscus due to old tear or injury, left knee; M65.862 Other synovitis and tenosynovitis, left lower leg; M22.42 Chondromalacia patellae, left knee; M17.12 Unilateral primary osteoarthritis, left knee; I10 Essential (primary) hypertension; I25.10 Atherosclerotic heart disease of native coronary artery without angina pectoris; I73.9 Peripheral vascular disease, unspecified; F17.210 Nicotine dependence, cigarettes, uncomplicated; Z91.040 Latex allergy status; Z79.82 Long term (current) use of aspirin; Z79.02 Long term (current) use of antithrombotics/antiplatelets; Z79.899 Other long term (current) drug therapy; Z90.49 Acquired absence of other specified parts of digestive tract; Z98.890 Other specified postprocedural states; Z85.038 Personal history of other malignant neoplasm of large intestine
CPT/HCPCS: 29880; J2250; J1100; J0690; J2405; J2001; J3010; J1885; J2704; J1170

== ENCOUNTER → 2020-09-03 | Outpatient (CLI) | payer MEDICARE ==
--- NOTE | 2020-09-04 08:02 | CT ---
EXAMINATION TYPE: CT abdomen pelvis w con DATE OF EXAM: 09/03/2020 HISTORY: diverticulitis CT DLP: 741mGycm Automated Exposure Control for Dose Reduction was Utilized. CONTRAST: CT scan of the abdomen and pelvis is performed with IV Contrast, patient injected with 100 mL of Isov ue 300. COMPARISON: CT abdomen and pelvis July 09, 2016 FINDINGS: LUNG BASES: Mild/moderate right greater than left bibasilar linear scarring and/or atelectasis. LIVER/GB: No significant abnormality is appreciated. PANCREAS: No significant abnormality is seen. SPLEEN: No significant abnormality is seen. ADRENALS: No significant abnormality is seen. KIDNEYS: No significant abnormality is seen. BOWEL: The oral contrast reaches level of the splenic flexure. No suspicious small or large bowel dil atation. Diverticula in the left and sigmoid colon without CT evidence for acute diverticulitis curre ntly. Stable nodular prominence near gastroduodenal junction coronal image 40 corresponding to axial image 31, polypoid lesion cannot be excluded. No significant change from prior. UTERUS/ADNEXA: Anteverted uterus. Scattered bilateral pelvic phleboliths. LYMPH NODES: No greater than 1cm abdominal or pelvic lymph nodes are appreciated. Mild mid abdominal fat stranding with a few prominent but subcentimeter lymph nodes. OSSEOUS STRUCTURES: Grade 1 anterolisthesis L4 and L5 moderate disc space narrowing with vacuum disc phenomenon L4-L5 level. Moderate disc space narrowing L2-L3 through the L5-S1 levels with multilevel vacuum disc phenomenon. Slight grade 1 retrolisthesis L2 on L3. Levoconvex scoliosis centered at L3 l evel. Moderate axial joint space loss both hips. OTHER: Mild/moderate calcified plaque of the aorta extends into branch vessels. IMPRESSION: Distal colonic diverticulosis. Convincing CT evidence for acute diverticulitis currently. Mild connie mesentery appearance redemonstrated. No significant new or acute finding identified.
== END | disposition home or self-care (01) ==
LOC: RADCTMAIN 15:30
PROVIDERS: ATTEND Internal Medicine Geriatric Medicine
DX: K57.32 Diverticulitis of large intestine without perforation or abscess without bleeding (principal)
CPT/HCPCS: 82565; 84520; 74177; 36415; Q9967

== ENCOUNTER → 2020-11-19 | Outpatient (CLI) | payer MEDICARE ==
--- NOTE | 2020-11-19 17:39 | BD ---
EXAMINATION TYPE: Axial Bone Density DATE OF EXAM: 11/19/2020 COMPARISON: 11/15/2001 CLINICAL HISTORY: Postmenopausal screening Height: 5 FT 4 IN Weight: 161 FRAX RISK QUESTIONS: Alcohol (3 or more units per day): NO Family History (Parent hip fracture): NO Glucocorticoids (More than 3mos): NO (Ex: prednisone, prednisolone, methylprednisolone, dexamethasone, and hydrocortisone). History of Fracture in Adulthood: NO Secondary Osteoporosis: 1. Type 1 Diabetes: NO 2. Hyperthyroidism: NO 3. Menopause before 45: CHEMO INDUCED AT AGE 47 4. Malnutrition: NO 5. Chronic liver disease: NO Rheumatoid Arthritis: NO Current Tobacco Use: NO RISK FACTORS HISTORY OF: Family History of Osteoporosis: YES Active: YES Diet low in dairy products/other sources of calcium: Postmenopausal woman: CHEMO INDUCED AGE 47 Take estrogen and/or progesterone medications: TOOK HRT FROM [age] APPROX Lost more than 2 inches in height since high school: YES MEDICATIONS: Additional Medications: ANTI DEPRESSANT, BABY ASPIRIN Additional History: COLON CANCER AGE 47 EXAM MEASUREMENTS: Bone mineral densitometry was performed using the [employer] System. Bone mineral density as measured about the Lumbar spine is: ----- L1-L4(G/cm2): 1.569 T Score Values are as follows: ----- L2: 2.1 ----- L3: 4.2 ----- L4: 4.9 ----- L1-L4: 3.2 Bone mineral density has: INCREASED 22.0 % since study of: 2001 Bone mineral density about the R hip (g/cm2): 0.826 Bone mineral density about the L hip (g/cm2): 0.811 T Score values are as follows: -----R Neck: -1.5 -----L Neck: -1.6 -----R Total: -0.2 -----L Total: -0.8 Bone mineral density has: DECREASED -4.7 % since study of: 2001 IMPRESSION: Osteopenia (T Score between -2.5 and -1). There is slightly increased risk of fracture and the patient may be considered for treatment. Re-Screen 2-5 years. NOTE: T-SCORE=SD OF THE YOUNG ADULT MEAN.
--- NOTE | 2020-11-20 11:48 | MM ---
Reason for exam: screening (asymptomatic). Last mammogram was performed 1 year and 3 months ago. History: Patient is postmenopausal and has history of colon cancer at age 47. Family history of breast cancer in sister at age 63 and breast cancer in maternal aunt at age 80. Benign MG stereo VAD BX LT of the left breast, September 03, 2018. Benign left mammotome panel of the left breast, April 12, 2013. Reductions of both breasts, 2007. Took estrogen for 5 years 8 months. Took progesterone for 5 years 8 months. Physical Findings: A clinical breast exam by your physician is recommended on an annual basis and results should be correlated with mammographic findings. MG 3D Screening Mammo W/Cad Bilateral CC and MLO view(s) were taken. Prior study comparison: September 01, 2019, bilateral MG diagnostic mammo w CAD [facility]. February 21, 2019, left breast MG 3d diag mammo w/cad LT. There are scattered fibroglandular densities. No significant changes when compared with prior studies. ASSESSMENT: Benign, BI-RAD 2 RECOMMENDATION: Routine screening mammogram of both breasts in 1 year.
== END | disposition home or self-care (01) ==
LOC: RADMAMWWP 12:40
PROVIDERS: ATTEND Internal Medicine Geriatric Medicine
DX: Z12.31 Encounter for screening mammogram for malignant neoplasm of breast (principal); M85.80 Other specified disorders of bone density and structure, unspecified site; M81.0 Age-related osteoporosis without current pathological fracture
CPT/HCPCS: 77063; 77067; 77080

== ENCOUNTER → 2021-04-02 | Outpatient (CLI) | payer MEDICARE ==
--- NOTE | 2021-04-02 14:48 | XR ---
Lumbar spine HISTORY: M 54.9 4 views of the lumbar spine There is a levoscoliosis centered at L2. There is multilevel spondylosis. Lumbar vertebral bodies que w preserved height. There is loss of disc at intervertebral levels with associated vacuum phenomenon. Suspect an anterolisthesis grade 1 L4-5, retrolisthesis grade 1 L3-4. Sclerosis is present in the po sterior elements. Atherosclerotic vascular calcifications present in the aorta iliac distribution. Scot ne mineralization is low. IMPRESSION: Degenerative disc disease, facet arthropathy and scoliosis. Osteopenia.
== END | disposition home or self-care (01) ==
LOC: RADXRMAIN 10:36
PROVIDERS: ATTEND Internal Medicine Geriatric Medicine
DX: M47.816 Spondylosis without myelopathy or radiculopathy, lumbar region (principal); M51.36 Other intervertebral disc degeneration, lumbar region; M41.86 Other forms of scoliosis, lumbar region
CPT/HCPCS: 72100

== ENCOUNTER → 2021-04-09 | Outpatient (CLI) | payer MEDICARE ==
[2021-04-09 12:41] LABS: African American GFR (CKD) >90 (>60 ml/min/1.73 sqM); Blood Urea Nitrogen 10 mg/dL (7-17); Non-African American GFR(CKD) >90 (>60 ml/min/1.73 sqM)
--- NOTE | 2021-04-09 14:29 | CT ---
EXAMINATION TYPE: CT abdomen pelvis w con DATE OF EXAM: 04/09/2021 COMPARISON: 09/03/2020 HISTORY: 75-year-old female K57.92, Diverticulitis TECHNIQUE: Contiguous axial scanning of the abdomen and pelvis following administration of 100 ml Iso samina 300 IV contrast. Delayed images through the kidneys and coronal/sagittal reconstructions perform ed. CT DLP: 624.5 mGycm Automated exposure control for dose reduction was used. FINDINGS: Heart upper limits of normal in size without pericardial effusion. Patchy bibasilar reticular and chadd und glass densities are unchanged, possible interstitial scarring or interstitial pneumonitis such as NSIP. No pleural effusion. A small hiatal hernia. Liver borderline in size at 17.2 cm. No focal liver lesion. Portal venous system is patent. Gallbladder, adrenal glands, spleen, and pancreas appear within normal limits. 5 mm nonobstructive right renal calculus. Symmetric uptake and excretion of contrast from both kidney s. Bilateral extrarenal pelves noted. Moderate atherosclerotic calcifications infrarenal abdominal aorta. No dilated small bowel, free fluid, or free air. No mesenteric or retroperitoneal lymphadenopathy. Oral contrast progressed to the proximal sigmoid colon. There is left-sided colonic diverticulosis. C ircumferential wall thickening along the mid to distal sigmoid colon with a engorgement of the vasa r ecta and mild pericolonic fat stranding. Some strandy edema and inflammation extends into the left ad nexa. No discrete abscess is seen. Bladder partially distended. Uterus anteverted. Ovaries not well delineated. No britt abnormal fluid collection in the pelvis or pelvic lymphadenopathy. Bones: Mild degenerative change of both hips. Severe hypertrophic facet arthropathy and Baastrup's d isease. Grade 1, nearly grade 2 anterolisthesis at L4-L5. Grade 1 retrolisthesis L1-L2 and L2-L3. IMPRESSION: 1. LEFT-SIDED CLONIC DIVERTICULOSIS. THERE IS INFLAMMATORY WALL THICKENING OF THE MID TO DISTAL SIGMO ID COLON WITH MILD TO MODERATE SURROUNDING INFLAMMATION. NONSPECIFIC COLITIS INCLUDING ACUTE DIVERTIC ULITIS ARE CONSIDERED. NO ABSCESS OR FREE AIR. 2. SMALL HIATAL HERNIA, 5 MM NONOBSTRUCTIVE RIGHT RENAL CALCULUS, AND UNCHANGED INTERSTITIAL AND GROU NDGLASS CHANGES IN THE LOWER LUNGS, POSSIBLE INTERSTITIAL SCARRING OR INTERSTITIAL PNEUMONITIS SUCH A S NSIP. 3. SEVERE HYPERTROPHIC FACET ARTHROPATHY LUMBAR SPINE WITH BAASTRUP'S DISEASE AND SPONDYLOLISTHESIS A S ABOVE.
== END | disposition home or self-care (01) ==
LOC: RADCTMAIN 11:43
PROVIDERS: ATTEND Internal Medicine Geriatric Medicine
DX: K57.30 Diverticulosis of large intestine without perforation or abscess without bleeding (principal); K44.9 Diaphragmatic hernia without obstruction or gangrene; N20.0 Calculus of kidney
CPT/HCPCS: 82565; 84520; 74177; 36415; Q9967 ×2

== ENCOUNTER → 2021-09-03 | Outpatient (CLI) | payer MEDICARE ==
--- NOTE | 2021-09-03 15:10 | XR ---
EXAMINATION TYPE: XR chest 2V DATE OF EXAM: 09/03/2021 COMPARISON: NONE HISTORY: TECHNIQUE: Frontal and lateral views of the chest are obtained. FINDINGS: There is no focal air space opacity, pleural effusion, or pneumothorax seen. The cardiac silhouette size is within normal limits. There is elevation of right hemidiaphragm. There is a spina l curvature, degenerative disc change. The osseous structures are intact, arthropathy noted in the sh oulders.. IMPRESSION: No acute cardiopulmonary process.
== END | disposition home or self-care (01) ==
LOC: RADXRMAIN 14:07
PROVIDERS: ATTEND Surgery
DX: R05.9 Cough, unspecified (principal)
CPT/HCPCS: 71046

== ENCOUNTER → 2021-10-14 | Outpatient (CLI) | payer MEDICARE ==
[2021-10-15 06:18] LABS: African American GFR (CKD) 99.6 (60.0-200.0); Albumin 3.9 g/dL (3.8-4.9); Albumin/Globulin Ratio 1.11 (1.60-3.17); Anion Gap 17.9 mmol/L (10.00-18.00); BUN/Creat Ratio 14.14 Ratio (12.00-20.00); Blood Urea Nitrogen 9.9 mg/dL (9.0-27.0); Calcium 9.6 mg/dL (8.7-10.3); Carbon Dioxide 18.1 mmol/L (20.0-27.5); Globulin 3.5 g/dL (1.6-3.3); Potassium 4.4 mmol/L (3.5-5.5); Total Bilirubin 0.2 mg/dL (0.30-1.20); Total Protein 7.4 g/dL (6.2-8.2)
== END | disposition home or self-care (01) ==
LOC: LABWHC1 12:23
PROVIDERS: ATTEND Internal Medicine Interventional Cardiology
DX: R00.0 Tachycardia, unspecified (principal)
CPT/HCPCS: 36415; 80053; 84443

== ENCOUNTER → 2021-11-26 | Outpatient (CLI) | payer MEDICARE ==
[2021-11-26 15:10] LABS: ALT 12 U/L (8-44); AST 21 U/L (13-35); African American GFR (CKD) 98.9 (60.0-200.0); Albumin 3.6 g/dL (3.8-4.9); Albumin/Globulin Ratio 1.03 (1.60-3.17); Alkaline Phosphatase 129 U/L (41-126); BUN/Creat Ratio 9.71 Ratio (12.00-20.00); Blood Urea Nitrogen 6.8 mg/dL (9.0-27.0); Calcium 9.2 mg/dL (8.7-10.3); Carbon Dioxide 23.2 mmol/L (20.0-27.5); Chloride 106 mmol/L (96-109); Chol/HDL Ratio 1.72 Ratio; Globulin 3.5 g/dL (1.6-3.3); Glucose 85 mg/dL (70-110); LDL Cholesterol,Calculated 22.4 mg/dL (0.0-131.0); Non-African American GFR(CKD) 85.4 (60.0-200.0); Potassium 4.1 mmol/L (3.5-5.5); Sodium 140 mmol/L (135-145); Total Protein 7.1 g/dL (6.2-8.2)
== END | disposition home or self-care (01) ==
LOC: LABWHC1 09:47
PROVIDERS: ATTEND Internal Medicine Interventional Cardiology
DX: E78.2 Mixed hyperlipidemia (principal)
CPT/HCPCS: 36415; 80053; 80061

== ENCOUNTER → 2022-10-06 | Outpatient (CLI) | payer MEDICARE ==
[2022-10-06 15:03] LABS: ALT 12 U/L (8-44); AST 20 U/L (13-35); African American GFR (CKD) 99.6 (60.0-200.0); Albumin 4.1 g/dL (3.8-4.9); Albumin/Globulin Ratio 1.37 (1.60-3.17); Alkaline Phosphatase 83 U/L (41-126); BUN/Creat Ratio 15.18 Ratio (12.00-20.00); Blood Urea Nitrogen 10.4 mg/dL (9.0-27.0); Calcium 9.2 mg/dL (8.7-10.3); Carbon Dioxide 27.3 mmol/L (20.0-27.5); Chloride 106 mmol/L (96-109); Glucose 94 mg/dL (70-110); LDL Cholesterol,Calculated 41.3 mg/dL (0.0-131.0); Potassium 4.2 mmol/L (3.5-5.5); Sodium 140 mmol/L (135-145); Total Protein 7.1 g/dL (6.2-8.2); VLDL Calculation 18.46 mg/dL (5.00-40.00)
== END | disposition home or self-care (01) ==
LOC: LABWHC1 09:21
PROVIDERS: ATTEND Internal Medicine Interventional Cardiology
DX: E78.2 Mixed hyperlipidemia (principal)
CPT/HCPCS: 36415; 80053; 80061

== ENCOUNTER → 2024-05-12 | Outpatient (CLI) | payer MEDICARE ==
--- NOTE | 2024-05-12 13:15 | XR ---
EXAMINATION TYPE: XR chest 2V DATE OF EXAM: 05/12/2024 12:52 PM CLINICAL INDICATION:Female, 78 years old with history of R06.02 SOB; COMPARISON: Chest radiographs from 05/12/2024 TECHNIQUE: XR chest 2V Frontal view of the chest. FINDINGS: Lungs/Pleura: There is no evidence of pleural effusion, focal consolidation, or pneumothorax. Pulmonary vascularity: Unremarkable. Heart/mediastinum: Cardiomediastinal silhouette is unremarkable. Musculoskeletal: No acute osseous pathology. IMPRESSION: No acute cardiopulmonary disease/process.
== END | disposition home or self-care (01) ==
LOC: RADXRMAIN 12:32
PROVIDERS: ATTEND Internal Medicine Geriatric Medicine
DX: R06.02 Shortness of breath (principal)
CPT/HCPCS: 71046

== ENCOUNTER → 2024-05-27 | Outpatient (CLI) | payer MEDICARE ==
[2024-05-27 15:50] LABS: African American GFR (CKD) 90 (>60 ml/min/1.73 sqM); Blood Urea Nitrogen 14 mg/dL (7-17); Non-African American GFR(CKD) 78 (>60 ml/min/1.73 sqM)
--- NOTE | 2024-05-27 18:09 | CT ---
EXAMINATION TYPE: CT angio chest CT DLP: 301 mGycm, Automated exposure control for dose reduction was used. DATE OF EXAM: 05/27/2024 4:54 PM COMPARISON: Chest radiographs 05/12/2024, CT abdomen and pelvis 04/09/2021. CLINICAL INDICATION:Female, 78 years old with history of R06.02 SHORTNESS OF BREATH; TECHNIQUE/CONTRAST: CTA scan of the thorax is performed with IV Contrast, patient injected with 100 mL of Isovue 370, pul monary embolism protocol. MIP images are created and reviewed. FINDINGS: Pulmonary Artery: There is no evidence for a filling defect within the pulmonary vasculature to sugge st acute pulmonary embolism. The pulmonary artery is of normal size. Lungs/Pleura: No evidence of focal consolidation, pleural effusion or pneumothorax. Diffuse subpleura l reticulation is identified. Bilateral lower lobe bronchiectasis. Bilateral lower lobe subpleural gr oundglass opacities. No subpleural sparing identified. Elevation of the right hemidiaphragm. Left dean or fissure intrafissural lymph node identified. Airway: Large airways are patent. Heart: Heart is within normal limits for size.. No pericardial effusion. Vasculature: No evidence of aortic aneurysm. Mediastinum: Mildly enlarged right hilar lymph node measuring up to 1.0 cm short axis (series 4, imag e 62). Musculoskeletal: No acute osseous abnormalities. Mild multilevel degenerative disc disease. Soft Tissues: Unremarkable. Lower neck: No significant findings. Upper Abdomen: No significant findings. IMPRESSION: 1. No evidence of pulmonary embolism. 2. There is scattered regions of subpleural reticulations with bibasilar subpleural groundglass opaci ties. Findings may represent developing interstitial fibrosis. 3. Nonspecific single mildly enlarged right hilar lymph node, may be reactive.
== END | disposition home or self-care (01) ==
LOC: RADCTMAIN 14:31
PROVIDERS: ATTEND Internal Medicine Geriatric Medicine
DX: R06.02 Shortness of breath (principal); R59.1 Generalized enlarged lymph nodes
CPT/HCPCS: 82565; 84520; 71275; 36415; Q9967

== ENCOUNTER → 2024-06-03 | Outpatient (CLI) | payer MEDICARE ==
[2024-06-03 17:39] LABS: NT-Pro-B-Type Natriuretic Pept 52 pg/mL (0-450)
[2024-06-03 17:40] LABS: Blood Urea Nitrogen 14.4 mg/dL (9.0-27.0); Calcium 9.4 mg/dL (8.7-10.3); Carbon Dioxide 23.5 mmol/L (21.6-31.8); Chloride 103 mmol/L (96-109); Glucose 93 mg/dL (70-110); Potassium 4.3 mmol/L (3.5-5.5); Sodium 140 mmol/L (135-145)
== END | disposition home or self-care (01) ==
LOC: LABWHC1 11:59
PROVIDERS: ATTEND Internal Medicine Interventional Cardiology
DX: R06.02 Shortness of breath (principal); R60.0 Localized edema
CPT/HCPCS: 36415; 80048; 83880

== ENCOUNTER → 2024-11-18 | Outpatient (CLI) | payer MEDICARE ==
[2024-11-18 15:34] LABS: ALT 20 U/L (8-44); AST 19 U/L (13-35); Albumin 3.9 g/dL (3.8-4.9); Albumin/Globulin Ratio 1.62 Ratio (1.60-3.17); Alkaline Phosphatase 91 U/L (41-126); BUN/Creat Ratio 23.88 Ratio (12.00-20.00); Blood Urea Nitrogen 19.1 mg/dL (9.0-27.0); Calcium 9.3 mg/dL (8.7-10.3); Carbon Dioxide 25.3 mmol/L (21.6-31.8); Chloride 105 mmol/L (96-109); Chol/HDL Ratio 1.89 Ratio; Globulin 2.4 g/dL (1.6-3.3); Glucose 90 mg/dL (70-110); Potassium 4.6 mmol/L (3.5-5.5); Sodium 141 mmol/L (135-145); Total Bilirubin 0.6 mg/dL (0.3-1.2); Total Protein 6.3 g/dL (6.2-8.2)
== END | disposition home or self-care (01) ==
LOC: LABWHC1 09:19
PROVIDERS: ATTEND Internal Medicine Interventional Cardiology
DX: E78.2 Mixed hyperlipidemia (principal)
CPT/HCPCS: 36415; 80053; 80061

== ENCOUNTER → 2025-02-22 | Outpatient (CLI) | payer MEDICARE ==
[2025-02-22 16:55] LABS: ALT 22 U/L (8-44); AST 24 U/L (13-35); Albumin 4.1 g/dL (3.8-4.9); Albumin/Globulin Ratio 1.52 Ratio (1.60-3.17); Alkaline Phosphatase 114 U/L (41-126); BUN/Creat Ratio 17.86 Ratio (12.00-20.00); Blood Urea Nitrogen 12.5 mg/dL (9.0-27.0); Calcium 9.7 mg/dL (8.7-10.3); Carbon Dioxide 28.7 mmol/L (21.6-31.8); Chloride 102 mmol/L (96-109); Chol/HDL Ratio 1.97 Ratio; Globulin 2.7 g/dL (1.6-3.3); Glucose 91 mg/dL (70-110); LDL Cholesterol,Calculated 63.4 mg/dL (0.0-131.0); Potassium 4.7 mmol/L (3.5-5.5); Sodium 140 mmol/L (135-145); Total Bilirubin 0.4 mg/dL (0.3-1.2); Total Protein 6.8 g/dL (6.2-8.2); VLDL Calculation 18.04 mg/dL (5.00-40.00)
== END | disposition home or self-care (01) ==
LOC: LABWHC1 10:39
PROVIDERS: ATTEND Internal Medicine Interventional Cardiology
DX: E78.2 Mixed hyperlipidemia (principal)
CPT/HCPCS: 36415; 80053; 80061

== ENCOUNTER → 2025-04-07 | Outpatient (CLI) | payer MEDICARE ==
--- NOTE | 2025-04-12 23:23 | CT ---
EXAMINATION TYPE: CT chest wo con DATE OF EXAM: 04/07/2025 4:32 PM COMPARISON: None. CLINICAL INDICATION: Female, 79 years old with history of J84.9 INTERSTITIAL PULMONARY DISEASE, UNSPE CIFIED, Interstitial pulmonary disease TECHNIQUE: Axial images were obtained at 1 mm thick sections at 10 mm intervals. This will limit po rtions of the examination which may not be visualized within the [id number]. Images were obtained in the prone and supine views. Contrast used: mL of , (none if empty) Oral contrast used: (none if empty) CT DLP: 260 mGycm, Automated exposure control for dose reduction was used. FINDINGS: Portion of the thyroid visualized is normal. No suspicious lung nodules or focal infiltrates are present.Appears to be some mild peripheral and b asilar pulmonary fibrosis. Mild bronchiectasis may be present. No significant change between inspirat ion and expiration is evident. No significant change between prone and supine imaging. No enlarged mediastinal or hilar adenopathy is evident. Some shotty lymphadenopathy is present. The ascending aorta diameter at the level of the main pulmonary artery is 3.5 cm. The main pulmonary ar ferny diameter at the bifurcation is 2.4 cm. No significant coronary artery calcifications. Limited CT sections are obtained through the upper abdomen. Abdomen is essentially unremarkable. IMPRESSION: 1. Mild peripheral pulmonary fibrosis and bronchiectasis. [facility], , 04/12/2025 11:20 PM
== END | disposition home or self-care (01) ==
LOC: RADCTMAIN 16:03
PROVIDERS: ATTEND Internal Medicine
DX: J84.9 Interstitial pulmonary disease, unspecified (principal); J84.10 Pulmonary fibrosis, unspecified; J47.9 Bronchiectasis, uncomplicated
CPT/HCPCS: 71250

== ENCOUNTER → 2025-04-27 | Outpatient (CLI) | payer MEDICARE ==
[2025-04-27 15:06] LABS: African American GFR (CKD) 78 (>60 ml/min/1.73 sqM); Anion Gap 11 mmol/L; Blood Urea Nitrogen 24 mg/dL (7-17); Carbon Dioxide 24 mmol/L (22-30); Chloride 103 mmol/L (98-107); Glucose 129 mg/dL (74-99); Non-African American GFR(CKD) 67 (>60 ml/min/1.73 sqM); Potassium 4.2 mmol/L (3.5-5.1); Sodium 138 mmol/L (137-145)
== END | disposition home or self-care (01) ==
LOC: LABWHC1 14:38
PROVIDERS: ATTEND Internal Medicine
DX: R30.0 Dysuria (principal)
CPT/HCPCS: 36415; 80048; 85379

== ENCOUNTER → 2025-04-27 | Outpatient (CLI) | payer MEDICARE ==
[2025-04-27 17:40] LABS: African American GFR (CKD) 80 (>60 ml/min/1.73 sqM); Blood Urea Nitrogen 29 mg/dL (7-17); Non-African American GFR(CKD) 69 (>60 ml/min/1.73 sqM)
--- NOTE | 2025-04-27 18:20 | CT ---
EXAMINATION TYPE: CT angio chest CT DLP: 372.1 mGycm, Automated exposure control for dose reduction was used. DATE OF EXAM: 04/27/2025 6:00 PM COMPARISON: CT chest 04/07/2025. CLINICAL INDICATION:Female, 79 years old with history of R06.02 SHORTNESS OF BREATH; STAT H&C: SOB TECHNIQUE/CONTRAST: CTA scan of the thorax is performed with IV Contrast, patient injected with 100 ml mL of Isovue 370, MIP images are created and reviewed these are created on a separate workstation.. FINDINGS: Pulmonary Artery: There is no evidence for a filling defect within the pulmonary vasculature to sugge st acute pulmonary embolism. The pulmonary artery is of normal size. Lungs/Pleura: Peripherally oriented subpleural groundglass and reticular changes are redemonstrated s imilar to the CT chest from reference. No pleural effusion or pneumothorax. Airway: Large airways are patent. Mild traction bronchiectasis is noted in the bilateral lower lobes. Heart: Heart is within normal limits for size. Vasculature: No evidence of aortic aneurysm. Mediastinum: No gross evidence of adenopathy. Musculoskeletal: No acute osseous abnormalities Soft Tissues/lymph nodes: Unremarkable. Lower neck: No significant findings. Upper Abdomen: Nonobstructive sub-5 mm right renal calculus. Small splenule incidentally noted. IMPRESSION: 1. No evidence of pulmonary embolism. 2. Redemonstrated peripherally oriented subpleural findings suggestive of pulmonary fibrosis with mil d bilateral lower lobe traction bronchiectasis. Cannot entirely exclude a underlying chronic infectio us/inflammatory process. Correlate with clinical evaluation. [facility], , 04/27/2025 6:18 PM
== END | disposition home or self-care (01) ==
LOC: RADCTMAIN 16:58
PROVIDERS: ATTEND Internal Medicine
DX: R06.02 Shortness of breath (principal)
CPT/HCPCS: 82565; 84520; 71275; 36415; Q9967

== ENCOUNTER → 2025-04-28 | Outpatient (CLI) | payer MEDICARE ==
--- NOTE | 2025-04-28 14:47 | US ---
EXAMINATION TYPE: US groin LT DATE OF EXAM: 04/28/2025 COMPARISON: NONE CLINICAL INDICATION: Female, 79 years old with history of R19.09 INTRA ABD PEL SWELLING; Left groin p alp x 1 week. No recent groin intervention per patient. Hx left leg cancer with surgery x 1 year ag o per patient TECHNIQUE: Grayscale and color Doppler imaging of the left groin in area of palpable abnormality. FINDINGS: Left groin scanned at patient palpable. Complex nonvascular lesion identified near GSV= 5 .9 x 5.1 x 4.3 cm with possible GSV connection but difficult to accurately visualize. IMPRESSION: Large growing lymph node highly concerning for malignancy. Tissue sampling recommended. [facility], , 04/28/2025 2:44 PM
== END | disposition home or self-care (01) ==
LOC: RADUSWWP 13:59
PROVIDERS: ATTEND Internal Medicine
DX: R19.09 Other intra-abdominal and pelvic swelling, mass and lump (principal); R59.0 Localized enlarged lymph nodes

== ENCOUNTER 2025-05-03 08:28 | Day surgery (SDC) | payer MEDICARE ==
[2025-05-03] MEDS: ALPRAZolam 0.25 MG TAB PO PRN (09:07)
[2025-05-03 09:26] VITALS: RESP 16; TEMP 98
[2025-05-03] MEDS: LIDOCAINE 1%-EPI 1:100,000 20 ML VIAL SQ STA (09:40)
[2025-05-03 09:42] VITALS: BP 133/70; PULSE 60
--- NOTE | 2025-05-03 12:32 | US ---
EXAMINATION TYPE: US biopsy soft tissue/muscle DATE OF EXAM: 05/03/2025 9:56 AM CLINICAL INDICATION:Female, 79 years old with history of R19.09 intra abdominal swelling/mass/lump; p atient with left inguinal mass and prior history of melanoma. COMPARISON: Ultrasound 04/28/2025 ATTENDING: Dr. Noel TECHNIQUE: Ultrasound guided percutaneous biopsy of large, presumed left inguinal lymph node measuring up to 6.5 cm. The patient was monitored by a qualified trained nurse independent of the Radiologist during sedation . FINDINGS: The procedure was explained to the patient. All questions were answered and informed consent was obta ined. The patient was placed supine and transverse ultrasound images of the left inguinal region were obtai krista. The overlying skin was marked and prepped using sterile method. Timeout was taken per protocol. Follo wing administration 1% local lidocaine anesthesia into the skin followed by lidocaine/epinephrine int o and around the presumed enlarged lymph node, a 6 cm, 18-gauge Bard biopsy needle was advanced with needle tip visualized within the mass. Two 18-gauge core biopsies were placed in formalin and two 18-gauge core biopsies were placed on a Te lfa pad for flow cytometry. Specimens were sent to pathology. The needle was removed. Other additional ultrasound scanning shows no abnormal fluid collection or ev ident complication. Hemostasis was obtained and a dressing was placed. Patient was taken for postprocedure observation in stable condition. IMPRESSIONS: Status post ultrasound guided left groin mass biopsy, presumed lymphadenopathy. Pathology results jossy jarrett. [facility], , 05/03/2025 12:29 PM
== END 2025-05-03 10:05 | disposition home or self-care (01) ==
LOC: RADPROMAIN 08:28
PROVIDERS: ATTEND Internal Medicine
DX: R19.09 Other intra-abdominal and pelvic swelling, mass and lump (principal); C18.9 Malignant neoplasm of colon, unspecified; C43.9 Malignant melanoma of skin, unspecified; J96.11 Chronic respiratory failure with hypoxia; J84.9 Interstitial pulmonary disease, unspecified; I10 Essential (primary) hypertension; E78.5 Hyperlipidemia, unspecified; N39.0 Urinary tract infection, site not specified; Z85.820 Personal history of malignant melanoma of skin; Z79.82 Long term (current) use of aspirin; Z79.51 Long term (current) use of inhaled steroids; Z79.02 Long term (current) use of antithrombotics/antiplatelets; Z79.899 Other long term (current) drug therapy
CPT/HCPCS: 20206; 76942; 88305; 88341; 88342